=== PATIENT | female | born 1960 | race Two or more races ===

== ENCOUNTER 2020-01-23 18:00 | Inpatient (IN) | payer OTHER ==
[~2020-01-23] VITALS: Ht 154.9 cm; Wt 85.0 kg
[2020-01-23] MEDS ORDERED: SODIUM CHLORIDE 0.9% 1,000 ML IV ONE (19:00)
[2020-01-23] MEDS ORDERED: DOXYCYCLINE 100MG/250ML 250 ML IV ONE (20:45)
[2020-01-23 21:42] LABS: Basophils # (auto) 0 10 ^3/uL (0-0.2); Basophils % (auto) 0.4 % (0.0-2.0); Eosinophils # (auto) 0.1 10 ^3/uL (0-0.8); Eosinophils % (auto) 0.5 % (0.0-7.0); Hemoglobin 13.1 g/dL (12.2-16.2); Lymphocytes # (auto) 0.9 10 ^3/uL (0.4-5.4); Lymphocytes % (auto) 7.7 % (10.0-50.0); Mean Corpuscular Hemoglobin 29.7 pg (28.0-32.0); Mean Corpuscular Hgb Conc. 32.6 g/dL (32.0-36.0); Monocytes # (auto) 0.8 10 ^3/uL (0-1.3); Monocytes % (auto) 7.2 % (0.0-12.0); Neutrophils # (auto) 9.7 10 ^3/uL (1.6-8.6); Neutrophils % (auto) 84.2 % (37.0-80.0); Nucleated Red Blood Cells % 0.1 %; Platelet Count (auto) 262 10^3/uL (140-450); Red Cell Distribution Width 14.1 % (11.8-14.3); White Blood Cell 11.5 10^3/uL (4.4-10.8)
[2020-01-23] MEDS ORDERED: methylPREDNISolone SOD SUCC 125 MG/2 ML VL IV ONE (21:45)
[2020-01-23 21:54] LABS: INR 1.02 (0.9-1.15); Partial Thromboplastin Time 27.4 sec (23.64-32.05)
[2020-01-23 21:56] LABS: Alanine Aminotransferase 51 U/L (13-56); Albumin 2.5 g/dL (3.4-5.0); Anion Gap 8 (5-15); Aspartate Aminotransferase 58 U/L (15-37); BUN/Creatinine Ratio 10.9; Blood Urea Nitrogen 6 mg/dL (7-18); Calcium 8.4 mg/dL (8.5-10.1); Carbon Dioxide 30 mmol/L (21-32); Chloride 98 mmol/L (98-107); GFR African American 145 mL/min; GFR Non-African American 120 mL/min; Glucose 180 mg/dL (74-106); Magnesium 2.3 mg/dL (1.6-2.6); Potassium 3.4 mmol/L (3.5-5.1); Sodium 136 mmol/L (136-145)
[2020-01-23 22:01] LABS: Alkaline Phosphatase 75 U/L (45-117); Bilirubin, Total 0.5 mg/dL (0.2-1.0); Total Protein 7.3 g/dL (6.4-8.2)
[2020-01-23 22:21] LABS: Urine Bacteria FEW /hpf (None Seen); Urine Blood Negative /uL (Negative); Urine Mucus FEW (None Seen); Urine Specific Gravity 1.011 (1.001-1.035); Urine WBC 8 /hpf (0 - 5)
[2020-01-24] MEDS ORDERED: SODIUM CHLORIDE 0.9% 1,000 ML IV SCH (02:54)
[2020-01-24] MEDS ORDERED: ACETAMINOPHEN 500 MG TAB PO PRN (03:00)
[2020-01-24] MEDS ORDERED: DOCUSATE SOD 100 MG CAP PO PRN (03:00)
[2020-01-24] MEDS ORDERED: ONDANSETRON HCL 4 MG/2 ML VIAL IV PRN (03:00)
[2020-01-24] MEDS ORDERED: IPRATROPIUM BROM 0.5 MG/2.5ML INH SOL NEB PRN (03:00)
[2020-01-24] MEDS: ALBUTEROL SULF HFA 90MCG INH 200DOSE IN SCH ×4 (06:00→22:47)
[2020-01-24] MEDS: CHOLECALCIFEROL (VITD3) 1,000UNIT=25mCg TAB PO SCH (07:57)
[2020-01-24] MEDS: DOXYCYCLINE 100 MG TAB/CAP PO SCH ×2 (07:57→22:35)
[2020-01-24] MEDS: cefTRIAXone 1GM/50ML D5W 50 ML IV SCH (07:57)
[2020-01-24] MEDS: ASCORBIC ACID 1,000 MG TAB PO SCH (07:57)
[2020-01-24] MEDS: ZINC SULFATE 220mg CAP or TAB PO SCH (07:57)
[2020-01-24] MEDS: LISINOPRIL 20 MG TAB PO SCH (07:57)
[2020-01-24 08:20] VITALS: BP 114/71
[2020-01-24] MEDS ORDERED: methylPREDNISolone SOD SUCC 125 MG/2 ML VL IV SCH (10:00)
[2020-01-24] MEDS ORDERED: ENOXAPARIN SOD 40 MG/0.4 ML SYRINGE SC SCH (10:00)
[2020-01-24 10:02] VITALS: BP 162/74
[2020-01-24] MEDS ORDERED: POTASSIUM CHL 20 Meq TABLET PO ONE (11:15)
[2020-01-24] MEDS ORDERED: FUROSEMIDE 40 MG/4 ML VIAL IV ONE (11:15)
[2020-01-24 11:56] LABS: Lactate Dehydrogenase 791 U/L (84-246)
[2020-01-24 12:43] LABS: CRP High Sensitivity > 19 mg/dL (< 0.3)
[2020-01-24 14:39] VITALS: BP 147/79
[2020-01-24 16:41] VITALS: BP 141/69
[2020-01-24] MEDS ORDERED: REMDESIVIR 200 MG in NS 210ml LOADING DOSE ADULT IV ONE (18:00)
[2020-01-24] MEDS: ACETAMINOPHEN 650 mg PER 20 mL UD PO SCH (20:25)
[2020-01-24] MEDS: diphenhdrAMINE HCL 50 MG/1 ML VL IV SCH (20:25)
[2020-01-24] MEDS: methylPREDNISolone SOD SUCC 40 MG/ML VL IV SCH (20:25)
[2020-01-24] MEDS: HYDROcodone-ACET 5/325MG TAB PO PRN (20:26)
[2020-01-24] MEDS: TOCILIZUMAB 400 MG in SODIUM CHL 0.9% 80 ML IV SCH (20:41)
[2020-01-24] MEDS: BUDESONIDE (INHALATION) 180 MCG IH IN SCH ×2 (22:34→22:47)
[2020-01-24] MEDS: ENOXAPARIN SOD 100 MG/1 ML SYRINGE SC SCH (22:35)
[2020-01-24 22:47] VITALS: BP 145/84
[2020-01-25 02:43] VITALS: BP 151/81
[2020-01-25 07:01] VITALS: BP 151/88
[2020-01-25] MEDS: ALBUTEROL SULF HFA 90MCG INH 200DOSE IN SCH ×3 (07:01→22:00)
[2020-01-25] MEDS: methylPREDNISolone SOD SUCC 40 MG/ML VL IV SCH (08:05)
[2020-01-25] MEDS: ACETAMINOPHEN 650 mg PER 20 mL UD PO SCH (08:05)
[2020-01-25] MEDS: diphenhdrAMINE HCL 50 MG/1 ML VL IV SCH (08:05)
[2020-01-25 08:25] LABS: Basophils # (auto) 0.1 10 ^3/uL (0-0.2); Basophils % (auto) 0.3 % (0.0-2.0); Eosinophils # (auto) 0 10 ^3/uL (0-0.8); Hematocrit 40.9 % (36.0-46.0); Hemoglobin 13.3 g/dL (12.2-16.2); Lymphocytes # (auto) 1.1 10 ^3/uL (0.4-5.4); Lymphocytes % (auto) 4.6 % (10.0-50.0); Mean Corpuscular Hemoglobin 29.9 pg (28.0-32.0); Mean Corpuscular Hgb Conc. 32.4 g/dL (32.0-36.0); Mean Corpuscular Volume 92.1 fL (80.0-100.0); Monocytes # (auto) 1.3 10 ^3/uL (0-1.3); Monocytes % (auto) 5.5 % (0.0-12.0); Neutrophils % (auto) 89.6 % (37.0-80.0); Platelet Count (auto) 300 10^3/uL (140-450); Red Blood Cells 4.44 10^6/uL (4.0-5.20); Red Cell Distribution Width 14.1 % (11.8-14.3); White Blood Cell 23.5 10^3/uL (4.4-10.8)
[2020-01-25 08:41] LABS: Albumin 2.5 g/dL (3.4-5.0); BUN/Creatinine Ratio 26.7; Calcium 8.9 mg/dL (8.5-10.1); Potassium 3.2 mmol/L (3.5-5.1)
[2020-01-25 08:44] LABS: Bilirubin, Total 0.4 mg/dL (0.2-1.0); Total Protein 7.4 g/dL (6.4-8.2)
[2020-01-25] MEDS: TOCILIZUMAB 400 MG in SODIUM CHL 0.9% 80 ML IV SCH (09:03)
[2020-01-25] MEDS: CHOLECALCIFEROL (VITD3) 1,000UNIT=25mCg TAB PO SCH (10:27)
[2020-01-25] MEDS: LISINOPRIL 20 MG TAB PO SCH (10:28)
[2020-01-25] MEDS: DexAMETHasone SOD PHOS 4 MG/1ML SDV INJ IV SCH (10:28)
[2020-01-25] MEDS: FUROSEMIDE 40 MG/4 ML VIAL IV SCH (10:28)
[2020-01-25] MEDS: DOXYCYCLINE 100 MG TAB/CAP PO SCH ×2 (10:30→22:36)
[2020-01-25] MEDS: ASCORBIC ACID 1,000 MG TAB PO SCH (10:30)
[2020-01-25] MEDS: ENOXAPARIN SOD 100 MG/1 ML SYRINGE SC SCH ×2 (10:30→22:36)
[2020-01-25] MEDS: POTASSIUM CHL 20 Meq TABLET PO SCH (10:30)
[2020-01-25] MEDS: cefTRIAXone 1GM/50ML D5W 50 ML IV SCH ×2 (10:31→22:36)
[2020-01-25] MEDS: ZINC SULFATE 220mg CAP or TAB PO SCH (10:34)
[2020-01-25] MEDS: BUDESONIDE (INHALATION) 180 MCG IH IN SCH ×2 (11:49→22:00)
[2020-01-25 13:48] VITALS: BP 150/90
[2020-01-25] MEDS ORDERED: POTASSIUM EFFERVESENT TAB 25 MEQ PO ONE (16:15)
[2020-01-25] MEDS ORDERED: amLODIPine BESYLATE 5 MG TAB PO ONE (16:15)
[2020-01-25] MEDS ORDERED: DEXTROSE (50%) 50ML SYRG IV PRN (16:30)
[2020-01-25] MEDS: REMDESIVIR 100mg in NS 230ml DAILYx4DAYS (NO VENT) IV SCH (17:53)
[2020-01-25 18:50] VITALS: BP 151/85
[2020-01-25] MEDS: ACCU-CHEK COMFORT CURVE STRIP VI SCH ×2 (18:56→23:21)
[2020-01-25] MEDS: InsuLIN REG 1unit/0.01ml Soln (100units/ml) SC SCH ×2 (18:57→23:28)
[2020-01-25 22:00] VITALS: BP 137/86
[2020-01-26] VITALS (7 sets, daily range): BP systolic 126–151; BP diastolic 69–88
[2020-01-26] MEDS ORDERED: InsuLIN REG 1unit/0.01ml Soln (100units/ml) IV ONE (03:15)
[2020-01-26] MEDS: InsuLIN REG 1unit/0.01ml Soln (100units/ml) SC SCH ×3 (06:28→18:25)
[2020-01-26] MEDS: ACCU-CHEK COMFORT CURVE STRIP VI SCH ×3 (06:28→18:16)
--- NOTE | 2020-01-26 06:58 | NUR ---
MDI ALBUTEROL 90 MCG AND PULMICORT 360 MCG GIVEN.
[2020-01-26 10:53] LABS: Hematocrit 40.9 % (36.0-46.0); Hemoglobin 13.4 g/dL (12.2-16.2); Mean Corpuscular Hgb Conc. 32.8 g/dL (32.0-36.0); Mean Corpuscular Volume 91.4 fL (80.0-100.0); Platelet Count (auto) 316 10^3/uL (140-450); Red Blood Cells 4.48 10^6/uL (4.0-5.20); White Blood Cell 16.1 10^3/uL (4.4-10.8)
[2020-01-26 10:57] LABS: Basophils % (manual) 0 (0.0-2.0); Blast Cells 0; Eosinophils % (manual) 0 (0-7); Metamyelocytes % 0; Myelocytes % 0; Promyelocytes % 0; Reactive Lymphocytes 0
[2020-01-26 11:11] LABS: Albumin 2.5 g/dL (3.4-5.0); Calcium 8.7 mg/dL (8.5-10.1); Potassium 3.2 mmol/L (3.5-5.1)
[2020-01-26 11:14] LABS: BUN/Creatinine Ratio 25.8; Bilirubin, Total 0.4 mg/dL (0.2-1.0); Total Protein 6.8 g/dL (6.4-8.2)
[2020-01-26] MEDS: BUDESONIDE (INHALATION) 180 MCG IH IN SCH ×2 (11:18→23:21)
[2020-01-26] MEDS: ALBUTEROL SULF HFA 90MCG INH 200DOSE IN SCH ×3 (11:19→23:21)
[2020-01-26 11:35] LABS: Band Neutrophils % (manual) 2; Lymphocytes % (manual) 4 (10.0-50.0); Monocytes % (manual) 1 (0-12)
[2020-01-26] MEDS ORDERED: POTASSIUM CHL 20 Meq TABLET PO ONE (12:00)
[2020-01-26] MEDS: DexAMETHasone SOD PHOS 4 MG/1ML SDV INJ IV SCH (12:19)
[2020-01-26] MEDS: CHOLECALCIFEROL (VITD3) 1,000UNIT=25mCg TAB PO SCH (12:20)
[2020-01-26] MEDS: ASCORBIC ACID 1,000 MG TAB PO SCH (12:20)
[2020-01-26] MEDS: DOXYCYCLINE 100 MG TAB/CAP PO SCH ×2 (12:20→22:25)
[2020-01-26] MEDS: cefTRIAXone 1GM/50ML D5W 50 ML IV SCH ×2 (12:20→22:24)
[2020-01-26] MEDS: ENOXAPARIN SOD 100 MG/1 ML SYRINGE SC SCH ×2 (12:20→22:25)
[2020-01-26] MEDS: ZINC SULFATE 220mg CAP or TAB PO SCH (12:20)
[2020-01-26] MEDS: POTASSIUM CHL 20 Meq TABLET PO SCH (12:20)
[2020-01-26] MEDS: amLODIPine BESYLATE 5 MG TAB PO SCH (12:21)
[2020-01-26] MEDS: FUROSEMIDE 40 MG/4 ML VIAL IV SCH (12:21)
[2020-01-26] MEDS: LISINOPRIL 20 MG TAB PO SCH (12:21)
[2020-01-26] MEDS: REMDESIVIR 100mg in NS 230ml DAILYx4DAYS (NO VENT) IV SCH (18:06)
--- NOTE | 2020-01-26 18:11 | NUR ---
Respiratory note: PT TAKEN OFF BIPAP AT THIS TIME AND PLACED ON NRB: HR 96, RR 24, SPO2 95%. PT SHOWS NO S/S OF SOB OR RESPIRATORY DISTRESS. WILL CONTINUE TO MONITOR.
[2020-01-27] VITALS (12 sets, daily range): BP systolic 103–144; BP diastolic 47–93
[2020-01-27] MEDS: InsuLIN REG 1unit/0.01ml Soln (100units/ml) SC SCH ×4 (00:21→18:00)
[2020-01-27] MEDS: ACCU-CHEK COMFORT CURVE STRIP VI SCH ×4 (00:21→18:28)
[2020-01-27] MEDS: FUROSEMIDE 40 MG/4 ML VIAL IV SCH (08:24)
[2020-01-27] MEDS: POTASSIUM CHL 20 Meq TABLET PO SCH (08:25)
[2020-01-27] MEDS: amLODIPine BESYLATE 5 MG TAB PO SCH (08:25)
[2020-01-27] MEDS: ASCORBIC ACID 1,000 MG TAB PO SCH (08:25)
[2020-01-27] MEDS: CHOLECALCIFEROL (VITD3) 1,000UNIT=25mCg TAB PO SCH (08:25)
[2020-01-27] MEDS: ZINC SULFATE 220mg CAP or TAB PO SCH (08:25)
[2020-01-27] MEDS: cefTRIAXone 1GM/50ML D5W 50 ML IV SCH ×2 (08:25→21:23)
[2020-01-27] MEDS: ENOXAPARIN SOD 100 MG/1 ML SYRINGE SC SCH ×2 (08:25→21:24)
[2020-01-27] MEDS: DOXYCYCLINE 100 MG TAB/CAP PO SCH ×2 (08:25→21:24)
[2020-01-27] MEDS: LISINOPRIL 20 MG TAB PO SCH (08:25)
[2020-01-27 08:39] LABS: Hematocrit 42.7 % (36.0-46.0); Hemoglobin 14.2 g/dL (12.2-16.2); Mean Corpuscular Hemoglobin 30.1 pg (28.0-32.0); Mean Corpuscular Hgb Conc. 33.2 g/dL (32.0-36.0); Mean Corpuscular Volume 90.6 fL (80.0-100.0); Platelet Count (auto) 321 10^3/uL (140-450); Red Blood Cells 4.71 10^6/uL (4.0-5.20); Red Cell Distribution Width 13.7 % (11.8-14.3); White Blood Cell 12.5 10^3/uL (4.4-10.8)
[2020-01-27 08:42] LABS: Band Neutrophils % (manual) 0; Basophils % (manual) 0 (0.0-2.0); Blast Cells 0; Myelocytes % 0; Promyelocytes % 0; Reactive Lymphocytes 0
--- NOTE | 2020-01-27 09:00 | NUR ---
Respiratory note: PT TAKEN OFF BIPAP BY RN AND PLACED ON 15LPM OXYMIZER. NO RESPIRATORY DISTRESS NOTED. WILL CONTINUE TO MONITOR. SPO2 89% HR 99 RR 24.
[2020-01-27 09:12] LABS: Calcium 8.4 mg/dL (8.5-10.1); Potassium 3.9 mmol/L (3.5-5.1)
[2020-01-27 09:14] LABS: BUN/Creatinine Ratio 29.4
[2020-01-27] MEDS ORDERED: LORazepam 2MG/ML-1ML VIAL ONE (09:14)
[2020-01-27] MEDS ORDERED: LORazepam 2MG/ML-1ML VIAL IV ONE (09:15)
[2020-01-27] MEDS: DexAMETHasone SOD PHOS 10MG/1ML VIAL INJ IV SCH (09:25)
[2020-01-27 09:34] LABS: Eosinophils % (manual) 1 (0-7); Lymphocytes % (manual) 9 (10.0-50.0); Metamyelocytes % 1; Monocytes % (manual) 3 (0-12)
[2020-01-27] MEDS: ALBUTEROL SULF HFA 90MCG INH 200DOSE IN SCH ×3 (09:51→21:25)
[2020-01-27] MEDS: BUDESONIDE (INHALATION) 180 MCG IH IN SCH ×2 (09:53→21:25)
[2020-01-27] MEDS ORDERED: ALPRAZolam 0.25 MG TAB PO PRN (14:45)
[2020-01-27] MEDS: REMDESIVIR 100mg in NS 230ml DAILYx4DAYS (NO VENT) IV SCH (18:28)
--- NOTE | 2020-01-27 19:48 | NUR ---
SPOKE WITH DR.SIVA JAVIER REGARDING PATIENT PULLING OFF CPAP AND ATTEMPTING TO REMOVE LINES. NEW ORDER RECEIVED FOR MEDSURG RESTRAINTS FOR PATIENT SAFETY. WILL CARRY OUT ORDER Addendum: 01/27/20 at 2036 by Lisy Louise RN WRONG PATIENT, DISREGARD NOTE
--- NOTE | 2020-01-27 21:30 | NUR ---
Admit to [facility]admitted to [facility] via gurney on passport application examiner, and portable 02. Patient transfered to bed, connected to unit monitoring and oxygen, and weighed by bedscale. Patient oriented to Lisy meraz RN, unit, room, bed, and unit policies regarding patient care and visiting hours. All questions and concerns addressed, patient verbalized understanding. PATIENT IS A/OX4, PRIMARILY POLISH SPEAKING, CONNECTED TO CONTINUOUS BEDSIDE MONITORS. PATIENT PLACED ON HIGH FLOW NASAL 55L, FIO2 100% BY RT. HOWARD DRAINING TO GRAVITY. PATIENT ABLE TO TURN AND REPOSITIONS SELF IN BED
--- NOTE | 2020-01-27 22:35 | NUR ---
NON COMPLIANT PATIENT HAS REMOVED HIGH FLOW CANNULA MULTIPLE TIMES. PATIENT RE-EDUCATED NOT TO REMOVE CANNULA. PATIENT EDUCATED THAT HER OXYGEN IS LOW WITHOUT THE OXYGEN BEING ADMINISTERED, PATIENT VERBALIZED UNDERSTANDING.
--- NOTE | 2020-01-27 22:50 | NUR ---
RT AT BEDSIDE PLACING PATIENT ON BI PAP MASK
--- NOTE | 2020-01-27 23:40 | NUR ---
NONCOMPLIANT PATIENT PULLED OFF BIPAP MASK. BY THE TIME THIS RN WAS ABLE TO DON PROPPER PPE, SPO2 SATURATION WAS AT 55%. PATIENT EXTENSIVELY EDUCATED NOT TO REMOVE BIPAP MASK. PATIENT NODDED HEAD IN AGREEMENT.
[2020-01-28] VITALS (13 sets, daily range): BP systolic 104–128; BP diastolic 47–80
--- NOTE | 2020-01-28 00:10 | NUR ---
NONCOMPLIANT PATIENT COMPLETELY REMOVED BIPAP MASK, SPO2 AT 65% AT THE LOWEST. AFTER THIS RN DONNED PPE, BIPAP PLACED BACK ON PATIENT. PATIENT EDUCATED NOT TO REMOVE MASK DUE TO LOW OXYGEN WITHOUT IT. PATIENT STATES, "SORRY". WILL CONTINUE TO MONITOR
--- NOTE | 2020-01-28 00:10 | NUR ---
CALLED PATIENTS FARHAT BASILIO [phone] TO UPDATE ON PATIENT NONCOMPLIANCE. NO ANSWER. WILL ATTEMPT AGAIN LATER.
--- NOTE | 2020-01-28 00:24 | NUR ---
NON COMPLIANT PATIENT PULLED OFF BIPAP MASK AND DESATURATED DOWN TO 60'S%. THIS RN DONNED PROPER PPE AND ENTERED ROOM. PATIENT FOUND WITH BIPAP MASK OFF AND PULLING PULSE OX. PATIENT EDUCATED NOT TO PULL OFF MASK AND TO KEEP PULSE OX ON. PATIENT STATES, "I DON'T WANT IT". EDUCATED PATIENT THAT HER OXYGEN IS LOW WITHOUT THE BIPAP MASK AND IT IS CRUCIAL TO LEAVE IT ON. PATIENT NODDED IN AGREEMENT.
--- NOTE | 2020-01-28 00:47 | NUR ---
NONCOMPLIANT PATIENT REMOVED BIPAP MASK COMPLETELY. SPO2 DROPPED TO 58% QUICKLY. CCT ATA DONNED PROPER PPE AND ENTERED ROOM TO PLACED BIPAP BACK ON PATIENT. SPO2 GRADUALLY INCREASED TO 91%. PATIENT KEEPS TRYING TO REMOVE BIPAP MASK DESPITE EDUCATION. WILL NOTIFY
[2020-01-28] MEDS: InsuLIN REG 1unit/0.01ml Soln (100units/ml) SC SCH ×4 (00:51→18:34)
--- NOTE | 2020-01-28 00:55 | NUR ---
HOSPITALIST PAGED REGARDING: PATIENT KEEPS PULLING BIPAP MASK OFF. WILL WAIT FOR CALL BACK.
--- NOTE | 2020-01-28 01:20 | NUR ---
RECEIVED CALL BACK SPOKE WITH HOSPITALIST ALICIA. NEW TELEPHONE ORDER RECEIVED FOR MEDSURG RESTRAINTS DUE TO PATIENT BEING A DANGER TO SELF BY PULLING OFF BIPAP. WILL CARRY OUT ORDER.
--- NOTE | 2020-01-28 01:40 | NUR ---
RECEIVED CALL FROM PATIENTS DAUGHTER CHETNA. CORRECT PASSWORD PROVIDED. UPDATE GIVEN ON PATIENT STATUS AND RESTRAINTS ORDER. DAUGHTER AWARE AND IN AGREEMENT. PATIENT STATES, "YES, LET'S DO WHATEVER WE HAVE TO DO TO KEEP HER OXYGEN UP".
--- NOTE | 2020-01-28 03:10 | NUR ---
NONCOMPLIANT PATIENT TOOK OFF WRIST RESTRAINTS AND PULLED OFF BIPAP MASK. SPO2 DROPPED TO 70'S. AFTER PPE DONNED, THIS RN ENTERED THE ROOM. EDUCATED PATIENT ON THE IMPORTANCE OF KEEPING ON BIPAP MASK. PATIENT STATES, "I DON'T WANT IT ON". EDUCATED PATIENT THAT BIPAP MASK IS WHAT IS HELPING HER OXYGENATION. PATIENT REORIENTED AND RE EDUCATED, PATIENT STILL ATTEMPTING TO REMOVE BIPAP AND TRYING TO REMOVE IV LINE. SOFT WRIST RESTRAINTS REAPPLIED. WILL CONTINUE TO MONITOR.
[2020-01-28 03:41] LABS: Basophils # (auto) 0 10 ^3/uL (0-0.2); Basophils % (auto) 0.2 % (0.0-2.0); Eosinophils # (auto) 0.1 10 ^3/uL (0-0.8); Eosinophils % (auto) 0.3 % (0.0-7.0); Hematocrit 42.6 % (36.0-46.0); Lymphocytes # (auto) 1.4 10 ^3/uL (0.4-5.4); Lymphocytes % (auto) 8.1 % (10.0-50.0); Mean Corpuscular Hemoglobin 29.9 pg (28.0-32.0); Mean Corpuscular Volume 90.7 fL (80.0-100.0); Monocytes # (auto) 0.6 10 ^3/uL (0-1.3); Monocytes % (auto) 3.4 % (0.0-12.0); Neutrophils # (auto) 15.4 10 ^3/uL (1.6-8.6); Nucleated Red Blood Cells % 0.1 %; Platelet Count (auto) 381 10^3/uL (140-450); Red Blood Cells 4.69 10^6/uL (4.0-5.20); Red Cell Distribution Width 13.9 % (11.8-14.3); White Blood Cell 17.5 10^3/uL (4.4-10.8)
[2020-01-28 03:58] LABS: Albumin 2.8 g/dL (3.4-5.0); Calcium 8.4 mg/dL (8.5-10.1); INR 1.19 (0.9-1.15); Partial Thromboplastin Time 28.5 sec (23.64-32.05); Potassium 3.4 mmol/L (3.5-5.1)
[2020-01-28 04:08] LABS: BUN/Creatinine Ratio 22.4; Bilirubin, Total 0.3 mg/dL (0.2-1.0); CRP High Sensitivity 2.3 mg/dL (< 0.3); Total Protein 6.8 g/dL (6.4-8.2)
[2020-01-28] MEDS ORDERED: ATEN-60 PO (05:37)
--- NOTE | 2020-01-28 06:10 | NUR ---
BM/HYGIENE PATIENT HAD LARGE LOOSE BROWN BM. PATIENT PROVIDED WITH HYGIENE CARE AND LINEN CHANGE. WARM SOAPY WASH CLOTHS USED, PATIENT TOLERATED WELL.
[2020-01-28] MEDS: ACCU-CHEK COMFORT CURVE STRIP VI SCH ×4 (06:47→18:34)
--- NOTE | 2020-01-28 07:39 | NUR ---
CLOSING PATIENT REMAINS ON BIPAP AND CONTINUOUS BEDSIDE MONITORS. PATIENT STILL ON RESTRAINTS FOR PATIENT SAFETY. PATIENT ASSESSED THROUGHOUT SHIFT, PROVIDED WITH ROM, ORAL CARE/NUTRITION, CIRCULATORY ASSESSMENTS, POSITION CHANGES, QUICK RELEASES, AND HYGIENE. CARE ENDORSED TO AM SHIFT VICTOR M LASSITER.
--- NOTE | 2020-01-28 08:00 | NUR ---
REMOVED SOFT RESTRAINTS PT ALERT AND ORIENTED. NO DISTRESS NOTED. AWARE OF SITUATION AND VERBALIZED UNDERSTANDING. PULSES AND SKIN INTACT.
[2020-01-28] MEDS: DexAMETHasone SOD PHOS 10MG/1ML VIAL INJ IV SCH (08:47)
[2020-01-28] MEDS: POTASSIUM CHL 20 Meq TABLET PO SCH (08:48)
[2020-01-28] MEDS: ZINC SULFATE 220mg CAP or TAB PO SCH (08:48)
[2020-01-28] MEDS: FUROSEMIDE 40 MG/4 ML VIAL IV SCH ×2 (08:48→10:00)
[2020-01-28] MEDS: cefTRIAXone 1GM/50ML D5W 50 ML IV SCH ×2 (08:48→21:26)
[2020-01-28] MEDS: DOXYCYCLINE 100 MG TAB/CAP PO SCH ×2 (08:49→21:26)
[2020-01-28] MEDS: ASCORBIC ACID 1,000 MG TAB PO SCH (08:49)
[2020-01-28] MEDS: amLODIPine BESYLATE 5 MG TAB PO SCH ×2 (08:49→10:00)
[2020-01-28] MEDS: CHOLECALCIFEROL (VITD3) 1,000UNIT=25mCg TAB PO SCH (08:50)
[2020-01-28] MEDS: LISINOPRIL 20 MG TAB PO SCH (08:50)
[2020-01-28] MEDS: ENOXAPARIN SOD 100 MG/1 ML SYRINGE SC SCH ×2 (08:51→21:26)
[2020-01-28] MEDS ORDERED: POTASSIUM CHL 20 Meq TABLET PO ONE (10:00)
[2020-01-28] MEDS: ALBUTEROL SULF HFA 90MCG INH 200DOSE IN SCH ×3 (10:16→21:57)
[2020-01-28] MEDS: BUDESONIDE (INHALATION) 180 MCG IH IN SCH ×2 (10:16→21:57)
--- NOTE | 2020-01-28 12:28 | NUR ---
Nutrition Assessment Notes please see attached link for complete assessment [employer] needs ABW 70 [id number] kcals (20-23 kcal/kgBW), Est Protein needs: 70-77 gms/day (1.0-1.1 gm/kgBW). Will continue to monitor and reassess prn. Addendum: 01/28/20 at [address] Amended: Links added.
[2020-01-28] MEDS: Glucerna Carbsteady SHAKE Vanilla 8oz PO SCH ×2 (12:46→17:31)
--- NOTE | 2020-01-28 16:15 | NUR ---
assessment Patient is a 59 year old female who has new onset confusion per her daughter Yolanda. Per Yolanda prior to admission patient lived home with family and was independent. Patient still works. Patients PCP is at the [facility]. Patient is Covid positive. I informed Yolanda patients post discharge needs to be determined once down graded and prior to discharge. I will continue to monitor and follow up as appropriate. Yolanda verbalized understanding. Addendum: 01/28/20 at 1618 by Mary MYLES Amended: Links added.
[2020-01-28] MEDS: REMDESIVIR 100mg in NS 230ml DAILYx4DAYS (NO VENT) IV SCH (17:31)
--- NOTE | 2020-01-28 19:03 | NUR ---
CARE ENDORSED PT WATCHING TV AND EATING SNACK. NO DISTRESS NOTED. PT ALERT AND ORIENTED RESTING IN BED. CALL LIGHT WITHIN REACH.
--- NOTE | 2020-01-28 19:17 | NUR ---
PT IS ON HIGH FLOW NC Addendum: 01/28/20 at 1918 by ADI GRANT RT Amended: Links added.
--- NOTE | 2020-01-28 19:40 | NUR ---
OPENING NOTE REPORT RECEIVED FROM HANNA RN. THIS IS A POSITIVE COVID PATIENT ON NOVEL RESPIRATORY ISOLATION. PATIENT IS A/OX4, CONNECTED TO CONTINUOUS BEDSIDE MONITORS AND ABLE TO VERBALIZE ALL NEEDS. PATIENT IS CURRENTLY ON HIGH FLOW NASAL CANNULA 45L, FIO2 90%, TOLERATING WELL WITH SPO2 BETWEEN 91-94%. PATIENT IS FINISHING UP HER DINNER TRAY AT THIS TIME INDEPENDENTLY. WILL RETURN ONCE PATIENT IS DONE TO COMPLETE PHYSICAL ASSESSMENT. HOWARD CATHETER HANGING TO GRAVITY. POC DISCUSSED. NO COMPLAINTS OF PAIN OR DISTRESS. PATIENT EDUCATED TO CALL FOR ANY NEEDS, PATIENT VERBALIZED UNDERSTANDING. CALL LIGHT WITHIN REACH.
--- NOTE | 2020-01-28 22:30 | NUR ---
RT AT BEDSIDE PLACING PATIENT ON BIPAP PER PATIENT REQUEST
[2020-01-29] VITALS (10 sets, daily range): BP systolic 108–128; BP diastolic 55–76
[2020-01-29] MEDS: ACCU-CHEK COMFORT CURVE STRIP VI SCH ×5 (00:04→23:51)
[2020-01-29] MEDS: InsuLIN REG 1unit/0.01ml Soln (100units/ml) SC SCH ×5 (00:05→23:51)
[2020-01-29 03:24] LABS: Basophils # (auto) 0 10 ^3/uL (0-0.2); Eosinophils # (auto) 0.1 10 ^3/uL (0-0.8); Hemoglobin 13.7 g/dL (12.2-16.2); Monocytes # (auto) 0.6 10 ^3/uL (0-1.3)
[2020-01-29 03:35] LABS: Basophils % (auto) 0.2 % (0.0-2.0); Eosinophils % (auto) 0.4 % (0.0-7.0); Hematocrit 42.1 % (36.0-46.0); Lymphocytes # (auto) 1.3 10 ^3/uL (0.4-5.4); Lymphocytes % (auto) 6.2 % (10.0-50.0); Mean Corpuscular Hemoglobin 29.5 pg (28.0-32.0); Mean Corpuscular Hgb Conc. 32.4 g/dL (32.0-36.0); Monocytes % (auto) 2.7 % (0.0-12.0); Neutrophils # (auto) 18.3 10 ^3/uL (1.6-8.6); Neutrophils % (auto) 90.5 % (37.0-80.0); Nucleated Red Blood Cells % 0.1 %; Platelet Count (auto) 361 10^3/uL (140-450); Red Blood Cells 4.63 10^6/uL (4.0-5.20); Red Cell Distribution Width 14.2 % (11.8-14.3); White Blood Cell 20.3 10^3/uL (4.4-10.8)
[2020-01-29 03:48] LABS: BUN/Creatinine Ratio 28.1; Calcium 8.1 mg/dL (8.5-10.1); Potassium 3.8 mmol/L (3.5-5.1)
--- NOTE | 2020-01-29 04:56 | NUR ---
FAMILY PATIENTS DAUGHTER CHETNA CALLED FOR AN UPDATE ON PATIENT. CORRECT PASSWORD WAS PROVIDED. UPDATE GIVEN ON CURRENT STATUS, ALL QUESTIONS ANSWERED.
--- NOTE | 2020-01-29 06:00 | NUR ---
BM PATIENT HAD LARGE BM USING BEDSIDE COMMODE. PATIENT ABLE TO AMBULATE TO COMMODE AND BACK INTO BED WITHOUT DISTRESS.
--- NOTE | 2020-01-29 06:10 | NUR ---
AM CARE COMPLETE LINEN CHANGE PROVIDED TO PATIENT. NEW GOWN ALSO PROVIDED TO PATIENT. PATIENT REQUESTS TO DO HER OWN HYGIENE CARE.
[2020-01-29] MEDS: ALBUTEROL SULF HFA 90MCG INH 200DOSE IN SCH ×3 (06:13→23:10)
[2020-01-29] MEDS: BUDESONIDE (INHALATION) 180 MCG IH IN SCH ×2 (06:14→22:00)
--- NOTE | 2020-01-29 07:25 | NUR ---
CLOSING PATIENT CONNECTED TO CONTINUOUS BEDSIDE MONITORS. PATIENT NOW ON HIGH FLOW NASAL CANNULA 45L, FIO2 90% AND TOLERATING WELL WITH SPO2 94%. NO SOB OR DISTRESS. CALL LIGHT WITHIN REACH. CARE ENDORSED TO DAYSTXFT VICTOR M LASSITER.
--- NOTE | 2020-01-29 09:00 | NUR ---
PT WATCHING TV CALL LIGHT WITHIN REACH. NO DISTRESS. VSS WILL CONTINUE TO MONITOR.
[2020-01-29] MEDS: ENOXAPARIN SOD 100 MG/1 ML SYRINGE SC SCH ×2 (09:36→21:26)
[2020-01-29] MEDS: cefTRIAXone 1GM/50ML D5W 50 ML IV SCH ×2 (09:36→21:26)
[2020-01-29] MEDS: FUROSEMIDE 40 MG/4 ML VIAL IV SCH (09:39)
[2020-01-29] MEDS: ZINC SULFATE 220mg CAP or TAB PO SCH (09:40)
[2020-01-29] MEDS: DexAMETHasone SOD PHOS 10MG/1ML VIAL INJ IV SCH (09:40)
[2020-01-29] MEDS: POTASSIUM CHL 20 Meq TABLET PO SCH (09:40)
[2020-01-29] MEDS: amLODIPine BESYLATE 5 MG TAB PO SCH (09:41)
[2020-01-29] MEDS: CHOLECALCIFEROL (VITD3) 1,000UNIT=25mCg TAB PO SCH (09:41)
[2020-01-29] MEDS: ASCORBIC ACID 1,000 MG TAB PO SCH (09:41)
[2020-01-29] MEDS: Glucerna Carbsteady SHAKE Vanilla 8oz PO SCH ×3 (10:34→19:38)
--- NOTE | 2020-01-29 10:40 | NUR ---
Respiratory note: TITRATED PT'S FLOW TO 40L ON THE HFNC. CHANGED WATER YESY WITHOUT INCIDENT.
--- NOTE | 2020-01-29 13:00 | NUR ---
02 TITRATION DECREASED TO FIO2 80%, PT POX 95%.
--- NOTE | 2020-01-29 17:37 | NUR ---
BEDSIDE PT USING BEDSIDE COMMODE. CALL LIGHT WITHIN REACH,.
--- NOTE | 2020-01-29 19:46 | NUR ---
CLOSING NOTE/CARE ENDORSED NO DISTRESS NOTED. VSS . CALL LIGHT WITHIN REACH.
--- NOTE | 2020-01-29 19:50 | NUR ---
OPENING NOTE REPORT RECEIVED FROM HANNA RN. THIS IS A POSITIVE COVID PATIENT ON NOVEL RESPIRATORY ISOLATION. PATIENT IS A/OX4, CONNECTED TO CONTINUOUS BEDSIDE MONITORS AND ABLE TO VERBALIZE ALL NEEDS. PATIENT IS CURRENTLY ON HIGH FLOW NASAL CANNULA 45L, FIO2 80%, TOLERATING WELL WITH SPO2 BETWEEN 91-94%. PHYSICAL ASSESSMENT DONE-SEE INTERVENTIONS. HOWARD CATHETER HANGING TO GRAVITY. POC DISCUSSED. NO COMPLAINTS OF PAIN OR DISTRESS. PATIENT EDUCATED TO CALL FOR ANY NEEDS, PATIENT VERBALIZED UNDERSTANDING. CALL LIGHT WITHIN REACH.
--- NOTE | 2020-01-29 22:37 | NUR ---
RT AT BEDSIDE SWITCHING PATIENT OVER TO BIPAP PER PATIENT REQUEST
--- NOTE | 2020-01-29 22:40 | NUR ---
FAMILY PATIENTS DAUGHTER CHETNA CALLED. CORRECT PASSWORD WAS PROVIDED. UPDATE GIVEN, ALL QUESTIONS ANSWERED.
[2020-01-30] VITALS (7 sets, daily range): BP systolic 105–124; BP diastolic 63–84
[2020-01-30 03:57] LABS: Basophils # (auto) 0.1 10 ^3/uL (0-0.2); Basophils % (auto) 0.3 % (0.0-2.0); Eosinophils # (auto) 0.1 10 ^3/uL (0-0.8); Eosinophils % (auto) 0.4 % (0.0-7.0); Hematocrit 44.3 % (36.0-46.0); Hemoglobin 14.3 g/dL (12.2-16.2); Lymphocytes # (auto) 0.9 10 ^3/uL (0.4-5.4); Lymphocytes % (auto) 4.1 % (10.0-50.0); Mean Corpuscular Hemoglobin 29.7 pg (28.0-32.0); Mean Corpuscular Hgb Conc. 32.3 g/dL (32.0-36.0); Mean Corpuscular Volume 91.8 fL (80.0-100.0); Monocytes # (auto) 0.6 10 ^3/uL (0-1.3); Neutrophils # (auto) 19.3 10 ^3/uL (1.6-8.6); Neutrophils % (auto) 92.2 % (37.0-80.0); Nucleated Red Blood Cells % 0.1 %; Platelet Count (auto) 358 10^3/uL (140-450); Red Blood Cells 4.83 10^6/uL (4.0-5.20); Red Cell Distribution Width 14.1 % (11.8-14.3); White Blood Cell 20.9 10^3/uL (4.4-10.8)
[2020-01-30 04:08] LABS: BUN/Creatinine Ratio 25.5; Calcium 8.3 mg/dL (8.5-10.1); Potassium 4.4 mmol/L (3.5-5.1)
[2020-01-30] MEDS: BUDESONIDE (INHALATION) 180 MCG IH IN SCH ×2 (05:42→22:10)
--- NOTE | 2020-01-30 05:42 | NUR ---
Respiratory note: PT REQUESTING TO BE OFF BIPAP. AT BEDSIDE IN FULL PPE FOR COVID PRECAUTIONS. PT TAKEN OFF BIPAP AND PLACED ON HFNC. HFNC CONNECTED TO MEDICAL AIR AND O2 WALL SOURCE. RADHA HEATER IS ADEQUATE WATER LEVEL, TEMP AND PLUGGED INTO RED OUTLET. PT TOLERATING WELL. PT HAS TO GO TO BEDSIDE COMMODE. DESATS WITH EXERTION. WILL CONTINUE TO MONITOR, PT AWARE I CAN BE PAGED AT ANY TIME SHE EXPERIENCES ANY DIFFICULTY BREATHING.
--- NOTE | 2020-01-30 05:46 | NUR ---
RT AT BEDSIDE PUTTING PATIENT ON HIGH FLOW NASAL CANNULA PER PATIENT REQUEST
--- NOTE | 2020-01-30 05:51 | NUR ---
PATIENT OUT OF BED, ON BEDSIDE COMMODE
[2020-01-30] MEDS: ACCU-CHEK COMFORT CURVE STRIP VI SCH ×4 (06:23→22:45)
[2020-01-30] MEDS: ALBUTEROL SULF HFA 90MCG INH 200DOSE IN SCH ×3 (06:25→22:10)
[2020-01-30] MEDS: InsuLIN REG 1unit/0.01ml Soln (100units/ml) SC SCH ×4 (06:25→22:22)
--- NOTE | 2020-01-30 06:26 | NUR ---
AM CARE WHILE PATIENT WAS UP ON BEDSIDE COMMODE, FULL LINEN CHANGE WAS DONE BY KATHERINE ANDREA. PATIENT WASHED UP WITH WARM SOAPY WASH CLOTHS.
--- NOTE | 2020-01-30 07:44 | NUR ---
CLOSING PATIENT CONNECTED TO CONTINUOUS BEDSIDE MONITORS. PATIENT NOW ON HIGH FLOW NASAL CANNULA 50L, FIO2 80%. CARE ENDORSED TO AM SHIFT VICTOR M ROWAN.
--- NOTE | 2020-01-30 07:45 | NUR ---
OPENING SHIFT NOTE Received report from NOC RNLisy. Assumed care of patient. Received patient resting in bed, connected to bedside monitor with alarms in place. Patient is A&Ox4 and denies pain. No s/s of distress noted. Patient currently on high flow O2 at 50L 80% with O2 sats in the mid 90s. Patient with stark draining to gravity yellow urine. PIV to left forearm #22 that flushes and is patent. Bed in lowest position, rails x2 up and call light/phone within reach. Updated on plan of care. Will continue to monitor q1hr/PRN.
[2020-01-30] MEDS: Glucerna Carbsteady SHAKE Vanilla 8oz PO SCH ×3 (08:00→17:58)
--- NOTE | 2020-01-30 09:00 | NUR ---
FAMILY Patient's daughter Yolanda called. Verified password. Updated on patient status and plan of care. All questions addressed.
[2020-01-30] MEDS: amLODIPine BESYLATE 5 MG TAB PO SCH (10:19)
[2020-01-30] MEDS: ENOXAPARIN SOD 100 MG/1 ML SYRINGE SC SCH ×2 (10:19→19:51)
[2020-01-30] MEDS: POTASSIUM CHL 20 Meq TABLET PO SCH (10:19)
[2020-01-30] MEDS: DexAMETHasone SOD PHOS 10MG/1ML VIAL INJ IV SCH (10:19)
[2020-01-30] MEDS: ZINC SULFATE 220mg CAP or TAB PO SCH (10:19)
[2020-01-30] MEDS: FUROSEMIDE 40 MG/4 ML VIAL IV SCH (10:19)
[2020-01-30] MEDS: CHOLECALCIFEROL (VITD3) 1,000UNIT=25mCg TAB PO SCH (10:19)
[2020-01-30] MEDS: ASCORBIC ACID 1,000 MG TAB PO SCH (10:19)
[2020-01-30] MEDS: cefTRIAXone 1GM/50ML D5W 50 ML IV SCH ×2 (10:19→19:51)
--- NOTE | 2020-01-30 11:00 | NUR ---
MD Dr Santos at bedside to see patient. to call daughter, Yolanda and update her.
--- NOTE | 2020-01-30 11:10 | NUR ---
O2 TITRATION ATTEMPT PER MD NICOLE. ATTEMPTED TO TITRATE TO 75% FIO2 PT DOES NOT TOLERATE O2 CHANGE. PT STEADILY DESATURATED TO LOW-MID80S, INCREASED BACK UP TO 80%FIO2, TOOK PT A COUPLE OF MINUTES TO RECOVER SATS OF 90%. COMMUNICATED ATTEMPT WITH RN AND MD NICOLE.
--- NOTE | 2020-01-30 12:50 | NUR ---
Patient sitting up in chair after eating lunch. No s/s of distress noted. Patient remains on high flow 50L 80% with O2sats 98%. RT aware that MD wants to try a titrate down O2 throughout day.
--- NOTE | 2020-01-30 13:40 | NUR ---
Respiratory note: AT BEDSIDE IN FULL PPE DUE TO COVID PRECAUTIONS, FIO2 TITRATED TO 70%. PT TOLERATING CHANGE WELL. MDI GIVEN WITH GOOD PT EFFORT AND WITHOUT ADVERSE REACTION NOTED. RN ANUM COMMUNICATED ON O2 CHANGE.
--- NOTE | 2020-01-30 16:33 | NUR ---
Respiratory note: AT BEDSIDE IN FULL PPE FOR COVID PRECAUTIONS. YESY WATER CHANGED ON RADHA HEATER WITHOUT INCIDENT. FIO2 TITRATED VIA HFNC TO 65% WHILE IN PTS ROOM, PT TOLERATED FINE. VICTOR M ROWAN MADE AWARE OF O2 CHANGE.
--- NOTE | 2020-01-30 16:45 | NUR ---
FAMILY Patient's daughter, Yolanda yanez. Password verified. Updated on patient status. All questions addressed.
--- NOTE | 2020-01-30 19:13 | NUR ---
END OF SHIFT NOTE Report given to NOC RNTate. Endorsed care of patient. Patient doing well on high flow 50L 65% with O2 sats 95%.
[2020-01-30] MEDS: HYDROcodone-ACET 5/325MG TAB PO PRN (19:51)
[2020-01-31] VITALS (13 sets, daily range): BP systolic 100–127; BP diastolic 49–77
[2020-01-31] MEDS: ACCU-CHEK COMFORT CURVE STRIP VI SCH ×3 (04:07→17:29)
[2020-01-31] MEDS: InsuLIN REG 1unit/0.01ml Soln (100units/ml) SC SCH ×3 (04:14→17:36)
[2020-01-31] MEDS: BUDESONIDE (INHALATION) 180 MCG IH IN SCH ×2 (05:58→22:00)
[2020-01-31] MEDS: ALBUTEROL SULF HFA 90MCG INH 200DOSE IN SCH ×3 (05:58→23:01)
--- NOTE | 2020-01-31 07:45 | NUR ---
OPENING SHIFT NOTE Received report from NOC RNTate. Assumed care of patient. Received patient resting in bed, connected to bedside monitor with alarms in place. Patient is A&Ox4 and denies pain. No s/s of distress noted. Patient currently on high flow O2 at 50L 60% with O2 sats in the mid 90s. Patient with stark draining to gravity yellow urine. PIV to left forearm #22 that flushes and is patent. Bed in lowest position, rails x2 up and call light/phone within reach. Updated on plan of care. Will continue to monitor q1hr/PRN.
[2020-01-31] MEDS: Glucerna Carbsteady SHAKE Vanilla 8oz PO SCH ×3 (08:00→17:29)
[2020-01-31] MEDS: amLODIPine BESYLATE 5 MG TAB PO SCH (10:00)
[2020-01-31] MEDS: POTASSIUM CHL 20 Meq TABLET PO SCH (10:22)
[2020-01-31] MEDS: FUROSEMIDE 40 MG/4 ML VIAL IV SCH (10:22)
[2020-01-31] MEDS: cefTRIAXone 1GM/50ML D5W 50 ML IV SCH ×2 (10:22→22:00)
[2020-01-31] MEDS: ZINC SULFATE 220mg CAP or TAB PO SCH (10:22)
[2020-01-31] MEDS: DexAMETHasone SOD PHOS 10MG/1ML VIAL INJ IV SCH (10:22)
[2020-01-31] MEDS: ASCORBIC ACID 1,000 MG TAB PO SCH (10:23)
[2020-01-31] MEDS: CHOLECALCIFEROL (VITD3) 1,000UNIT=25mCg TAB PO SCH (10:23)
[2020-01-31] MEDS: ENOXAPARIN SOD 100 MG/1 ML SYRINGE SC SCH ×2 (10:23→22:00)
--- NOTE | 2020-01-31 12:00 | NUR ---
MD Dr Nails to see patient.
--- NOTE | 2020-01-31 16:39 | NUR ---
FAMILY Patient's daughter, Yolanda called. Password verified. Updated on patient status. All questions addressed.
--- NOTE | 2020-01-31 18:56 | NUR ---
END OF SHIFT NOTE Report to be given to NOC RNNanda. Care of patient to be endorsed. Patient doing well on high flow 50L 60% with O2 sats 92%.
--- NOTE | 2020-01-31 19:15 | NUR ---
Opening notes Assumed care, awake and oriented with no signs of distress, on high flow 50L, FiO2 60%, SR 60's noted, stark catheter draining to clear yellow urine. Bed in lowest position with side rails up, bed alarm on. Encouraged to call if she needs something. Will continue care.
--- NOTE | 2020-01-31 20:06 | NUR ---
Received a call from dtr Mireya, updated on pt's status, all questions and concerns were addressed, verbalized understanding
--- NOTE | 2020-01-31 20:15 | NUR ---
Received a call from [place] and spoke with Radha, updates on pt's status given
[2020-02-01] VITALS (9 sets, daily range): BP systolic 107–121; BP diastolic 59–81
[2020-02-01] MEDS: ACCU-CHEK COMFORT CURVE STRIP VI SCH ×4 (00:02→17:31)
--- NOTE | 2020-02-01 00:30 | NUR ---
RT at bedside, shifted high flow to Bipap
[2020-02-01] MEDS: InsuLIN REG 1unit/0.01ml Soln (100units/ml) SC SCH ×4 (01:08→17:36)
--- NOTE | 2020-02-01 02:00 | NUR ---
Pt requested RT to switch back to high flow
--- NOTE | 2020-02-01 02:21 | NUR ---
Saturation 83-84%, Rt at bedside, increased FiO2 to 70%, SPO2 increased to 90%
[2020-02-01 03:20] LABS: Hematocrit 44.5 % (36.0-46.0); Hemoglobin 14.6 g/dL (12.2-16.2); Mean Corpuscular Hemoglobin 30.1 pg (28.0-32.0); Mean Corpuscular Hgb Conc. 32.7 g/dL (32.0-36.0); Platelet Count (auto) 312 10^3/uL (140-450); Red Blood Cells 4.84 10^6/uL (4.0-5.20); Red Cell Distribution Width 14.5 % (11.8-14.3); White Blood Cell 19.9 10^3/uL (4.4-10.8)
[2020-02-01 03:23] LABS: Basophils % (manual) 0 (0.0-2.0); Blast Cells 0; Eosinophils % (manual) 0 (0-7); Metamyelocytes % 0; Monocytes % (manual) 0 (0-12); Myelocytes % 0; Promyelocytes % 0; Reactive Lymphocytes 0
[2020-02-01 03:38] LABS: Albumin 2.8 g/dL (3.4-5.0); Calcium 8.4 mg/dL (8.5-10.1); Magnesium 2.6 mg/dL (1.6-2.6); Potassium 4.4 mmol/L (3.5-5.1)
[2020-02-01 03:44] LABS: BUN/Creatinine Ratio 28.1; Bilirubin, Total 0.3 mg/dL (0.2-1.0); CRP High Sensitivity 0.3 mg/dL (< 0.3); Total Protein 6.5 g/dL (6.4-8.2)
--- NOTE | 2020-02-01 04:15 | NUR ---
JOHN, 40 INITIALLY, RECHECKED 50, D50-50 CC GIVEN IV PUSH RECHECKED BS 66 Addendum: 02/01/20 at 0607 by Willard Camarena RN WRONG PT
[2020-02-01 05:05] LABS: Band Neutrophils % (manual) 6; Lymphocytes % (manual) 3 (10.0-50.0)
--- NOTE | 2020-02-01 05:15 | NUR ---
ELIMINATION ASSISTED TO BSC, HAD LARGE AMOUNT OF SOFT, BROWN STOOLS, SAT LOW 80'S, CLEANSED, REFUSED LINEN CHANGE. ASSISTED BACK ON BED O2 SAT SLOWLY INCREASING TO HIGH 90'S. NO DISTRESS NOTED.
--- NOTE | 2020-02-01 06:03 | NUR ---
RECEIVED A CALL FROM DTR CLARENCE, UPDATED ON PT'S STATUS, ALL QUESTIONS AND CONCERNS WERE ADDRESSED, VERBALIZED UNDERSTANDING.
[2020-02-01] MEDS: ALBUTEROL SULF HFA 90MCG INH 200DOSE IN SCH ×3 (06:15→22:22)
[2020-02-01] MEDS: BUDESONIDE (INHALATION) 180 MCG IH IN SCH ×2 (06:15→22:22)
--- NOTE | 2020-02-01 07:45 | NUR ---
OPENING SHIFT NOTE Received report from NOC RNNanda. Assumed care of patient. Received patient resting in bed, connected to bedside monitor with alarms in place. Patient is A&Ox4 and denies pain. No s/s of distress noted. Patient currently on high flow O2 at 50L 70% with O2 sats in the mid 90s. Patient with stark draining to gravity yellow urine. PIV to left forearm #22 that flushes and is patent. Bed in lowest position, rails x2 up and call light/phone within reach. Updated on plan of care. Will continue to monitor q1hr/PRN.
[2020-02-01] MEDS: Glucerna Carbsteady SHAKE Vanilla 8oz PO SCH ×3 (08:00→17:24)
--- NOTE | 2020-02-01 09:30 | NUR ---
MD Dr Nails at bedside. No orders received.
[2020-02-01] MEDS: amLODIPine BESYLATE 5 MG TAB PO SCH (10:00)
--- NOTE | 2020-02-01 11:00 | NUR ---
FAMILY Returned phone call to will Yolanda. Updated on patient status. All questions addressed.
[2020-02-01] MEDS: DexAMETHasone SOD PHOS 10MG/1ML VIAL INJ IV SCH (11:37)
[2020-02-01] MEDS: cefTRIAXone 1GM/50ML D5W 50 ML IV SCH ×2 (11:37→22:00)
[2020-02-01] MEDS: ZINC SULFATE 220mg CAP or TAB PO SCH (11:37)
[2020-02-01] MEDS: FUROSEMIDE 40 MG/4 ML VIAL IV SCH (11:37)
[2020-02-01] MEDS: POTASSIUM CHL 20 Meq TABLET PO SCH (11:38)
[2020-02-01] MEDS: ENOXAPARIN SOD 100 MG/1 ML SYRINGE SC SCH ×2 (11:38→22:00)
[2020-02-01] MEDS: CHOLECALCIFEROL (VITD3) 1,000UNIT=25mCg TAB PO SCH (11:38)
[2020-02-01] MEDS: ASCORBIC ACID 1,000 MG TAB PO SCH (11:38)
--- NOTE | 2020-02-01 14:22 | NUR ---
Nutrition Followup Notes Wt: 91.2 kg Pt is positive for COVID. Pt is with a cardiac diet, with adequate PO of 75% x 5 per RN doc. pt also receiving Glucerna 1 carton tid [employer] needs ABW 70 [id number] kcals (20-23 kcal/kgBW), Est Protein needs: 70-77 gms/day (1.0-1.1 gm/kgBW). Will continue to monitor and reassess prn. LABS: CA 8.4 L, ALB 2.8 L, GLU 156 H GI: Pt had 1 BM today per RN doc BS: 19 low risk. Refer to wound assessment report for full details. PES: Altered nutrition related lab values r.t current chronic medical condition aeb hypocalcemia, hypercapnia hypocalcemia and hyperglycemia Decreased nutrient needs r/t adiposity aeb pt`s high BMI of 38.0 kgm2 Comments 1) refer to [facility] dietitian on DC for wt management. 2) continue current plan of care
--- NOTE | 2020-02-01 18:51 | NUR ---
END OF SHIFT NOTE Report to be given to NOC RNElizbaeth. Care of patient to be endorsed. Patient doing well on high flow 50L 60% with O2 sats 95%.
--- NOTE | 2020-02-01 20:20 | NUR ---
IV Insertion 22G inserted to right hand. Pt tolerated well.
--- NOTE | 2020-02-01 22:30 | NUR ---
Elimination Pt had moderate BM in bedside commode.
[2020-02-02] VITALS (10 sets, daily range): BP systolic 105–125; BP diastolic 50–99
[2020-02-02] MEDS: InsuLIN REG 1unit/0.01ml Soln (100units/ml) SC SCH ×5 (00:26→23:11)
[2020-02-02] MEDS: ACCU-CHEK COMFORT CURVE STRIP VI SCH ×4 (00:26→17:08)
[2020-02-02] MEDS: ALBUTEROL SULF HFA 90MCG INH 200DOSE IN SCH ×3 (07:30→22:32)
[2020-02-02] MEDS: BUDESONIDE (INHALATION) 180 MCG IH IN SCH ×2 (07:30→22:22)
--- NOTE | 2020-02-02 07:45 | NUR ---
Opening Shift Note Assumed care of patient, awake and alert, watching television. No S/S of distress/SOB or pain noted, patient currently on 50 liters and 60% FIO2. Patient instructed on POC and to call for assist as needed. Commode cleaned of small size stool, will continue to monitor for changes. Fall and safety precautions in place.
[2020-02-02] MEDS: Glucerna Carbsteady SHAKE Vanilla 8oz PO SCH ×3 (08:00→18:00)
--- NOTE | 2020-02-02 09:27 | NUR ---
Family updated on pt status Family of TORRES, YURIY updated on patient's status and condition after password verification. All questions and concerns addressed, will Guerrero verbalized understanding.
--- NOTE | 2020-02-02 10:30 | NUR ---
HOSPITALIST AT BEDSIDE DR APARICIO UPDATED ON PATIENT'S STATUS, NO VERBAL ORDERS GIVEN AT THIS TIME.
[2020-02-02] MEDS: CHOLECALCIFEROL (VITD3) 1,000UNIT=25mCg TAB PO SCH (10:57)
[2020-02-02] MEDS: ENOXAPARIN SOD 100 MG/1 ML SYRINGE SC SCH ×2 (10:57→22:00)
[2020-02-02] MEDS: ASCORBIC ACID 1,000 MG TAB PO SCH (11:00)
[2020-02-02] MEDS: ZINC SULFATE 220mg CAP or TAB PO SCH (11:00)
[2020-02-02] MEDS: DexAMETHasone SOD PHOS 10MG/1ML VIAL INJ IV SCH (11:00)
[2020-02-02] MEDS: POTASSIUM CHL 20 Meq TABLET PO SCH (11:01)
[2020-02-02] MEDS: cefTRIAXone 1GM/50ML D5W 50 ML IV SCH ×2 (11:32→22:00)
[2020-02-02] MEDS: amLODIPine BESYLATE 5 MG TAB PO SCH (11:33)
[2020-02-02] MEDS: FUROSEMIDE 40 MG/4 ML VIAL IV SCH (11:33)
--- NOTE | 2020-02-02 13:15 | NUR ---
BM/COMFORT/IV DISCONTINUED/RESTARTED PATIENT ABLE TO TRANSFER SELF FROM BED TO COMMODE - IN PROCESS PATIENT DISCONTINUED IV TO LEFT HAND, CATHETER FULLY INTACT - PRESSURE DRESSING APPLIED.PATIENT ABLE TO CLEAN SELF OF LARGE SOFT BROWN STOOL. PATIENT TRANSFERRED SELF BACK TO BED AND THIS NURSE ASSISTED WITH GOWN CHANGE AND COMPLETE BEDDING CHANGE. IV insertion IV access obtained, via clean sterile technique by inserting 22 gauge catheter at left forearm after one attempt. IV secured properly. No trauma to site. Patient tolerated procedure well. FALL AND SAFETY PRECAUTIONS IN PLACE, CALL LIGHT AND ALL PERSONAL BELONGINGS WITHIN REACH. WILL CONTINUE TO MONITOR.
--- NOTE | 2020-02-02 18:00 | NUR ---
Family updated on pt status Family of YURIY TORRES updated on patient's status and condition after password verification. All questions and concerns addressed. Patient's daughter Yolanda verbalized understanding.
--- NOTE | 2020-02-02 22:30 | NUR ---
Family Received call from daughter. All questions and concerns addressed at this time.
--- NOTE | 2020-02-03 03:37 | NUR ---
IV insertion to left AC 18g. Pt tolerated well.
[2020-02-03 03:46] LABS: Mean Corpuscular Hemoglobin 30.5 pg (28.0-32.0); Mean Corpuscular Hgb Conc. 33.3 g/dL (32.0-36.0); Mean Corpuscular Volume 91.6 fL (80.0-100.0); Platelet Count (auto) 326 10^3/uL (140-450); Red Blood Cells 4.92 10^6/uL (4.0-5.20); Red Cell Distribution Width 14.6 % (11.8-14.3); White Blood Cell 17.9 10^3/uL (4.4-10.8)
[2020-02-03 04:00] VITALS: BP 116/69
[2020-02-03 04:06] LABS: Potassium 4.4 mmol/L (3.5-5.1)
[2020-02-03 04:10] LABS: Band Neutrophils % (manual) 0; Basophils % (manual) 0 (0.0-2.0); Blast Cells 0; Metamyelocytes % 0; Promyelocytes % 0; Reactive Lymphocytes 0
[2020-02-03 04:17] LABS: Albumin 3.1 g/dL (3.4-5.0); BUN/Creatinine Ratio 29.3; Bilirubin, Total 0.3 mg/dL (0.2-1.0); CRP High Sensitivity 0.1 mg/dL (< 0.3); Calcium 8.7 mg/dL (8.5-10.1); Total Protein 7.1 g/dL (6.4-8.2)
[2020-02-03] MEDS: InsuLIN REG 1unit/0.01ml Soln (100units/ml) SC SCH ×4 (05:17→23:31)
[2020-02-03] MEDS: ACCU-CHEK COMFORT CURVE STRIP VI SCH ×5 (05:17→23:31)
[2020-02-03 05:21] LABS: Eosinophils % (manual) 1 (0-7); Lymphocytes % (manual) 8 (10.0-50.0); Monocytes % (manual) 5 (0-12); Myelocytes % 2
--- NOTE | 2020-02-03 07:23 | NUR ---
Report given to day shift RN
[2020-02-03] MEDS: ALBUTEROL SULF HFA 90MCG INH 200DOSE IN SCH ×3 (07:30→22:30)
--- NOTE | 2020-02-03 07:30 | NUR ---
OPENING SHIFT NOTE REPORT RECEIVED FROM OPTICAL DISPENSER RN, PATIENT RESTING IN BED WATCHING TELEVISION. NO DISTRESS NOTED, RESPIRATIONS EVEN AND UNLABORED CURRENTLY ON 50 LITERS - 45% FIO2. FALL AND SAFETY PRECAUTIONS IN PLACE, CALL LIGHT AND ALL PERSONAL BELONGINGS WITHIN REACH. WILL CONTINUE TO MONITOR.
[2020-02-03] MEDS: BUDESONIDE (INHALATION) 180 MCG IH IN SCH ×2 (07:31→22:30)
[2020-02-03 08:00] VITALS: BP 126/86
[2020-02-03] MEDS: Glucerna Carbsteady SHAKE Vanilla 8oz PO SCH ×3 (08:00→18:00)
--- NOTE | 2020-02-03 09:45 | NUR ---
I.S. PROVIDED PATIENT EDUCATED ON USE AND NEED FOR INCENTIVE SPIROMETER. PATIENT PROVIDED RETURN DEMONSTRATION AND MEASURED 500 MLS. PATIENT INSTRUCTED TO USE THREE TIMES EVERY 15 MINUTES WHILE AWAKE AND/OR WATCHING TELEVISION. PATIENT VERBALIZED UNDERSTANDING.
[2020-02-03] MEDS: ENOXAPARIN SOD 100 MG/1 ML SYRINGE SC SCH ×2 (09:47→22:00)
[2020-02-03] MEDS: DexAMETHasone SOD PHOS 10MG/1ML VIAL INJ IV SCH (09:47)
[2020-02-03] MEDS: POTASSIUM CHL 20 Meq TABLET PO SCH (09:48)
[2020-02-03] MEDS: ZINC SULFATE 220mg CAP or TAB PO SCH (09:48)
[2020-02-03] MEDS: CHOLECALCIFEROL (VITD3) 1,000UNIT=25mCg TAB PO SCH (09:48)
[2020-02-03] MEDS: ASCORBIC ACID 1,000 MG TAB PO SCH (09:48)
[2020-02-03 09:59] VITALS: BP 121/81
[2020-02-03] MEDS: cefTRIAXone 1GM/50ML D5W 50 ML IV SCH ×2 (10:21→22:00)
[2020-02-03] MEDS: FUROSEMIDE 40 MG/4 ML VIAL IV SCH (10:21)
[2020-02-03] MEDS: amLODIPine BESYLATE 5 MG TAB PO SCH (10:22)
--- NOTE | 2020-02-03 11:30 | NUR ---
PT WAS TAKEN OFF THE HFNC, PT PLACED ON 12 L/ MIN VIA OXYMIZER. PT TOLERATING WELL. PT SITTING UP IN CHAIR. 93% O2 SATS, HR 102 BPM, BP 122/76. NO SOB OR ANY OTHER RESPIRATORY DISTRESS NOTICED. WILL CONTINUE TO MONITOR PT.
[2020-02-03 11:49] VITALS: BP 122/76
--- NOTE | 2020-02-03 12:30 | NUR ---
Family updated on pt status Family of YURIY TORRES updated on patient's status and condition after password verificatoin. All questions and concerns addressed. Patient's daughter Yolanda verbalized understanding.
--- NOTE | 2020-02-03 15:51 | NUR ---
PT REMAINS OFF HFNC AND ON 10L/MIN VIA OXYMIZER. PT TOLERATING WELL. 93-94% O2 SATS. NO SOB OR ANY OTHER RESPIRATORY DISTRESS NOTICED. WILL CONTINUE TO MONITOR PT.
[2020-02-03 16:00] VITALS: BP 135/85
--- NOTE | 2020-02-03 18:47 | NUR ---
PT ON 10L OXYMIZER, SPO2 NOTED AT 97%. FIO2 TITRATED TO 9L VIA OXYMIZER, SPO2 STILL NOTED AT 97%, RN DARRIUS AWARE. PT IN NO RESPIRATORY DISTRESS. IS IN HAND, PT STATES SHE IS ABLE TO PERFORM AND FEELING BETTER. BS DIMINISHED/CLEAR. NO SIGNS OF RESPIRATORY DISTRESS. HFNC REMAINS AT BEDSIDE ON STANDBY. WILL CONTINUE TO MONITOR AND TITRATE FIO2 TOLERATED.
[2020-02-03 20:00] VITALS: BP 115/80
--- NOTE | 2020-02-03 20:30 | NUR ---
Family Daughter called asking for update. All questions and concerns addressed at this time.
[2020-02-03] MEDS: INSULIN 70/30 1unit/0.01ml Susp (100units/ml) SC SCH (22:00)
--- NOTE | 2020-02-03 22:30 | NUR ---
Elimination Pt had moderate amt of bm in bedside commode.
[2020-02-04] VITALS (7 sets, daily range): BP systolic 105–136; BP diastolic 70–85
--- NOTE | 2020-02-04 02:47 | NUR ---
Respiratory note: AT BEDSIDE IN FULL PPE, ATTEMPTED TO TITRATE FIO2 TO 8L VIA OXYMIZER PT SPO2 NOTED AT 87% AFTER TITRATION. PT PLACED BACK ON 9L OXYMIZER, SPO2 NOTED AT 94%. PT TO REMAIN ON 9L AT THIS TIME. PT IN NO RESPIRATORY DISTRESS, WILL CONTINUE TO MONITOR.
[2020-02-04 04:00] LABS: BUN/Creatinine Ratio 32.7; Calcium 8.7 mg/dL (8.5-10.1); Potassium 4.3 mmol/L (3.5-5.1)
[2020-02-04] MEDS: ALBUTEROL SULF HFA 90MCG INH 200DOSE IN SCH ×3 (06:00→22:59)
[2020-02-04] MEDS: InsuLIN REG 1unit/0.01ml Soln (100units/ml) SC SCH ×4 (06:11→23:29)
[2020-02-04] MEDS: ACCU-CHEK COMFORT CURVE STRIP VI SCH ×4 (06:11→23:25)
--- NOTE | 2020-02-04 06:23 | NUR ---
Call from family Family updated on pt status throughout the night. All questions and concerns addressed at this time.
--- NOTE | 2020-02-04 07:14 | NUR ---
REPORT GIVEN TO DAY SHIFT RN
--- NOTE | 2020-02-04 07:45 | NUR ---
OPENING SHIFT NOTE Received report from NOC RNElizabeth. Assumed care of patient. Received patient resting in bed, connected to bedside monitor with alarms in place. Patient is A&Ox4 and denies pain. No s/s of distress noted. Patient currently on Oxymizer at 9L with O2 sats in the mid 90s. Patient with stark draining to gravity yellow urine. Patient with two PIVs: left forearm #22 and left AC #18 both flush and are patent. Bed in lowest position, rails x2 up and call light/phone within reach. Updated on plan of care. Will continue to monitor q1hr/PRN.
[2020-02-04] MEDS: Glucerna Carbsteady SHAKE Vanilla 8oz PO SCH ×3 (08:00→18:22)
--- NOTE | 2020-02-04 09:00 | NUR ---
FAMILY T/C from patient's daughterYolanda. Password verified. Updated on patient status. All question answered at this time.
[2020-02-04] MEDS: DexAMETHasone SOD PHOS 10MG/1ML VIAL INJ IV SCH (10:00)
[2020-02-04] MEDS: INSULIN 70/30 1unit/0.01ml Susp (100units/ml) SC SCH ×2 (10:00→22:30)
[2020-02-04] MEDS: amLODIPine BESYLATE 5 MG TAB PO SCH (10:00)
[2020-02-04] MEDS: ASCORBIC ACID 1,000 MG TAB PO SCH (10:00)
[2020-02-04] MEDS: BUDESONIDE (INHALATION) 180 MCG IH IN SCH ×2 (10:00→22:59)
[2020-02-04] MEDS: ENOXAPARIN SOD 100 MG/1 ML SYRINGE SC SCH ×2 (10:00→22:36)
[2020-02-04] MEDS: cefTRIAXone 1GM/50ML D5W 50 ML IV SCH (10:00)
[2020-02-04] MEDS: ZINC SULFATE 220mg CAP or TAB PO SCH (10:00)
[2020-02-04] MEDS: POTASSIUM CHL 20 Meq TABLET PO SCH (10:00)
[2020-02-04] MEDS: CHOLECALCIFEROL (VITD3) 1,000UNIT=25mCg TAB PO SCH (10:00)
--- NOTE | 2020-02-04 12:42 | NUR ---
Nutrition Followup Notes Wt: 87.8 kg Pt is positive for COVID. Pt is with a cardiac diet, with adequate PO of 75% x 4 per RN doc. pt also receiving Glucerna 1 carton tid [employer] needs ABW 70 [id number] kcals (20-23 kcal/kgBW), Est Protein needs: 70-77 gms/day (1.0-1.1 gm/kgBW). Will continue to monitor and reassess prn. LABS: GLU 186 H ALB 3.1 L GI: Pt had 1 BM today per RN doc BS: 21 low risk. Refer to wound assessment report for full details. PES: Altered nutrition related lab values r.t current chronic medical condition aeb hypocalcemia, hypercapnia hypocalcemia and hyperglycemia Decreased nutrient needs r/t adiposity aeb pt`s high BMI of 38.0 kgm2 Comments 1) refer to [facility] dietitian on DC for wt management. 2) continue current plan of care
--- NOTE | 2020-02-04 13:00 | NUR ---
MD Dr Nails at bedside to see patient. Orders received for downgrade.
--- NOTE | 2020-02-04 14:45 | NUR ---
FAMILY T/C from patient's daughterYolanda. Password verified. Updated on patient status to include telemetry downgrade. Informed daughter that patient has no bed yet. Will notify family when bed is assigned. All questions answered.
--- NOTE | 2020-02-04 18:57 | NUR ---
END OF SHIFT NOTE Report to be given to NOC RNLisy. Care of patient to be endorsed. Patient doing well on Oxymizer 9L with O2 sats in the mids 90s. Patient is a tele downgrade, awaiting bed assignment.
--- NOTE | 2020-02-04 19:40 | NUR ---
OPENING NOTE REPORT RECEIVED FROM HANNA RN. THIS IS A POSITIVE COVID PATIENT ON NOVEL RESPIRATORY ISOLATION. PATIENT IS CONNECTED TO CONTINUOUS BEDSIDE MONITORS. PATIENT IS ON 9L OXYMIZER AND TOLERATING WELL. NEW ORDER FOR TELEMETRY IN PLACE, WILL DOWNGRADE WHEN BED BECOMES AVAILABLE. PHYSICAL ASSESSMENT DONE-SEE INTERVENTIONS. HOWARD DRAINING TO GRAVITY. POC DISCUSSED WITH PATIENT, ALL QUESTIONS ANSWERED. WILL MONITOR Q1H PRN THROUGHOUT SHIFT. CALL LIGHT WITHIN REACH.
--- NOTE | 2020-02-04 20:40 | NUR ---
REPORT/SBAR CALLED AND GAVE REPORT TO VICTOR M MORALEZ. ALL QUESTIONS ANSWERED. WILL TRANSFER PATIENT SHORTLY.
--- NOTE | 2020-02-04 20:45 | NUR ---
FAMILY PATIENTS DAUGHTER CHETNA CALLED. CORRECT PASSWORD WAS PROVIDED. UPDATE GIVEN, ALL QUESTIONS ANSWERED.
--- NOTE | 2020-02-04 20:53 | NUR ---
TRANSFER TO FLOOR PATIENT TAKEN TO ROOM 250B VIA WHEELCHAIR. ALL BELONGINGS TAKEN WITH PATIENT. PATIENT ON 9L OXYMIZER AT TIME OF TRANSFER. TELEBOX ON PATIENT. NO INCIDENT DURING TIME OF TRANSFER. RECEIVING VICTOR M MORALEZ TO ASSUME CARE OF PATIENT. Addendum: 02/04/20 at 2203 by Lisy Louise RN PATIENT TAKEN TO ROOM 250A
--- NOTE | 2020-02-04 20:53 | NUR ---
receive pt from debbie Assumed care of patient, awake and alert. No S/S of distress. Instructed on POC and to call for assist PRN, will continue to monitor for changes Q1hr and PRN.
[2020-02-05 05:00] VITALS: BP 133/85
[2020-02-05] MEDS: InsuLIN REG 1unit/0.01ml Soln (100units/ml) SC SCH ×4 (05:50→23:26)
[2020-02-05] MEDS: ACCU-CHEK COMFORT CURVE STRIP VI SCH ×4 (05:51→23:25)
[2020-02-05] MEDS: BUDESONIDE (INHALATION) 180 MCG IH IN SCH ×2 (07:16→22:00)
[2020-02-05] MEDS: ALBUTEROL SULF HFA 90MCG INH 200DOSE IN SCH ×3 (07:16→22:00)
--- NOTE | 2020-02-05 07:18 | NUR ---
end of shift notes endorse care to day shift RN , pt BERNABE , no sign and symptoms distress or sob Addendum: 02/05/20 at 718 by NAOMY ENGEL RN end of shift notes endorse care to day shift RN , pt BERNABE , no sign and symptoms of distress or sob
--- NOTE | 2020-02-05 07:30 | NUR ---
Opening Shift Note Assumed care of patient, awake and alert. No S/S of distress/SOB or pain. Bed is low, locked with 2x side rails up. Call light is within reach. Instructed on POC and to call for assist PRN, will continue to monitor for changes Q1hr and PRN.
[2020-02-05 09:42] VITALS: BP 122/83
[2020-02-05] MEDS: DexAMETHasone SOD PHOS 10MG/1ML VIAL INJ IV SCH (10:08)
[2020-02-05] MEDS: POTASSIUM CHL 20 Meq TABLET PO SCH (10:08)
[2020-02-05] MEDS: ZINC SULFATE 220mg CAP or TAB PO SCH (10:08)
[2020-02-05] MEDS: Glucerna Carbsteady SHAKE Vanilla 8oz PO SCH ×3 (10:08→17:54)
[2020-02-05] MEDS: amLODIPine BESYLATE 5 MG TAB PO SCH (10:09)
[2020-02-05] MEDS: CHOLECALCIFEROL (VITD3) 1,000UNIT=25mCg TAB PO SCH (10:09)
[2020-02-05] MEDS: ASCORBIC ACID 1,000 MG TAB PO SCH (10:09)
[2020-02-05] MEDS: INSULIN 70/30 1unit/0.01ml Susp (100units/ml) SC SCH ×2 (10:25→21:37)
[2020-02-05 12:41] VITALS: BP 113/77
[2020-02-05 12:42] VITALS: BP 113/77
--- NOTE | 2020-02-05 17:56 | NUR ---
Dr. Nails rounding Updating patient on POC.
[2020-02-05 18:23] VITALS: BP 148/90
[2020-02-05] MEDS: ACETAMINOPHEN 325 MG TAB PO PRN (21:36)
--- NOTE | 2020-02-05 22:00 | NUR ---
FAMILY PATIENTS DAUGHTER CHETNA CALLED. UPDATE GIVEN, ALL QUESTIONS ANSWERED.
[2020-02-05 22:58] VITALS: BP 129/71
[2020-02-06 05:18] VITALS: BP 132/83
[2020-02-06] MEDS: ACCU-CHEK COMFORT CURVE STRIP VI SCH ×4 (05:18→23:51)
[2020-02-06] MEDS: InsuLIN REG 1unit/0.01ml Soln (100units/ml) SC SCH ×4 (05:19→23:50)
[2020-02-06] MEDS: ALBUTEROL SULF HFA 90MCG INH 200DOSE IN SCH ×3 (06:42→21:16)
[2020-02-06] MEDS: BUDESONIDE (INHALATION) 180 MCG IH IN SCH ×2 (06:43→21:16)
--- NOTE | 2020-02-06 07:21 | NUR ---
end of shift notes endorse care to day shift RN , pt [email or web address] , no sign and symptoms of distress or sob
[2020-02-06 07:42] LABS: Hematocrit 43.7 % (36.0-46.0); Hemoglobin 14.7 g/dL (12.2-16.2); Mean Corpuscular Hemoglobin 30.8 pg (28.0-32.0); Mean Corpuscular Hgb Conc. 33.6 g/dL (32.0-36.0); Mean Corpuscular Volume 91.6 fL (80.0-100.0); Platelet Count (auto) 254 10^3/uL (140-450); Red Blood Cells 4.77 10^6/uL (4.0-5.20); Red Cell Distribution Width 14.8 % (11.8-14.3); White Blood Cell 16.3 10^3/uL (4.4-10.8)
[2020-02-06 07:46] LABS: Band Neutrophils % (manual) 0; Basophils % (manual) 0 (0.0-2.0); Blast Cells 0; Eosinophils % (manual) 0 (0-7); Metamyelocytes % 0; Myelocytes % 0; Promyelocytes % 0; Reactive Lymphocytes 0
[2020-02-06 07:57] LABS: Calcium 8.5 mg/dL (8.5-10.1); Magnesium 2.7 mg/dL (1.6-2.6); Potassium 4.4 mmol/L (3.5-5.1)
[2020-02-06 08:02] LABS: BUN/Creatinine Ratio 39.5; Bilirubin, Total 0.4 mg/dL (0.2-1.0); CRP High Sensitivity 0.04 mg/dL (< 0.3); Total Protein 6.6 g/dL (6.4-8.2)
[2020-02-06 08:06] LABS: Lymphocytes % (manual) 11 (10.0-50.0); Monocytes % (manual) 5 (0-12)
[2020-02-06 08:34] VITALS: BP 125/82
[2020-02-06] MEDS: DexAMETHasone SOD PHOS 10MG/1ML VIAL INJ IV SCH (09:17)
[2020-02-06] MEDS: Glucerna Carbsteady SHAKE Vanilla 8oz PO SCH ×3 (09:17→17:50)
[2020-02-06] MEDS: ZINC SULFATE 220mg CAP or TAB PO SCH (09:18)
[2020-02-06] MEDS: amLODIPine BESYLATE 5 MG TAB PO SCH (09:18)
[2020-02-06] MEDS: POTASSIUM CHL 20 Meq TABLET PO SCH (09:18)
[2020-02-06] MEDS: ASCORBIC ACID 1,000 MG TAB PO SCH (09:19)
[2020-02-06] MEDS: CHOLECALCIFEROL (VITD3) 1,000UNIT=25mCg TAB PO SCH (09:19)
[2020-02-06] MEDS: INSULIN 70/30 1unit/0.01ml Susp (100units/ml) SC SCH ×2 (11:58→22:30)
[2020-02-06 13:00] VITALS: BP 112/64
[2020-02-06 13:44] VITALS: BP 125/82
[2020-02-06 17:06] VITALS: BP 110/62
--- NOTE | 2020-02-06 17:36 | NUR ---
TITRATED O2 TO 2L N/C PATIENTS 02 SATURATION IS 94%
--- NOTE | 2020-02-06 18:02 | NUR ---
Stark catheter dc'd Order to discontinue stark catheter. Stark dc'd with clean technique following deflation of balloon. Patient tolerated well with no complaints of pain. Continue care.
--- NOTE | 2020-02-06 19:20 | NUR ---
OPENING NOTE ASSUMED CARE OF PT. ALERT AND ORIENTED. NO S/S OF SOB/DISTRESS NOTED. BED SET TO LOWEST POSITION/LOCKED. BEDSIDE RAILS UP X2. CALL LIGHT WITHIN REACH. INSTRUCTED PATIENT TO CALL FOR ASSISTANCE. UPDATED ON POC. WILL CONTINUE TO MONITOR Q1HR AND PRN.
[2020-02-06 22:00] VITALS: BP 121/72
[2020-02-06] MEDS: ACETAMINOPHEN 325 MG TAB PO PRN (22:35)
[2020-02-07 05:00] VITALS: BP 128/78
[2020-02-07] MEDS: ACCU-CHEK COMFORT CURVE STRIP VI SCH ×4 (05:51→23:06)
[2020-02-07] MEDS: InsuLIN REG 1unit/0.01ml Soln (100units/ml) SC SCH ×4 (05:51→23:07)
[2020-02-07] MEDS: ALBUTEROL SULF HFA 90MCG INH 200DOSE IN SCH ×3 (07:15→23:06)
[2020-02-07] MEDS: BUDESONIDE (INHALATION) 180 MCG IH IN SCH ×2 (07:15→23:06)
--- NOTE | 2020-02-07 07:15 | NUR ---
Respiratory note: MDI GIVEN BY RT, TOLERATED WELL. HR 82, RR 16, SPO2 96% 4L NC, BS DIMINISHED. NO SIGNS OR SYMPTOMS OF RESPIRATORY DISTRESS NOTED. WILL CONTINUE TO MONITOR ORDERED. Addendum: 02/07/20 at 1104 by DONNA YOUSIF RT PT INFORMED TO RINSE MOUTH AFTER PULMICORT DPI
--- NOTE | 2020-02-07 07:35 | NUR ---
end of shift notes endorse care to day shift RN , pt [email or web address] , no sign and symptoms of distress or sob
[2020-02-07] MEDS: Glucerna Carbsteady SHAKE Vanilla 8oz PO SCH ×2 (08:00→12:00)
--- NOTE | 2020-02-07 08:00 | NUR ---
ASSESSMENT NOTE PT IS ALERT ORIENTED X4, RESTING IN BED COMFORTABLY, NO DISTRESS NOTED ON 5 L NC SAT AT 94 %, PAIN 0/10, USE BED SIDE COMMODE NEEDED, CALL LIGHT WITHIN REACH
[2020-02-07] MEDS: INSULIN 70/30 1unit/0.01ml Susp (100units/ml) SC SCH ×2 (08:26→21:37)
[2020-02-07 08:58] VITALS: BP 131/68
--- NOTE | 2020-02-07 09:00 | NUR ---
DECREASE OXYGEN TO 3 NC, CONTINUE MONITORING
--- NOTE | 2020-02-07 09:30 | NUR ---
PT SAT ON 3 L NC AT 89 TO 90 %, INCREASE OXYGEN BACK UP TO 5 L NC
[2020-02-07] MEDS: CHOLECALCIFEROL (VITD3) 1,000UNIT=25mCg TAB PO SCH (09:31)
[2020-02-07] MEDS: POTASSIUM CHL 20 Meq TABLET PO SCH (09:31)
[2020-02-07] MEDS: ZINC SULFATE 220mg CAP or TAB PO SCH (09:31)
[2020-02-07] MEDS: ASCORBIC ACID 1,000 MG TAB PO SCH (09:31)
[2020-02-07] MEDS: amLODIPine BESYLATE 5 MG TAB PO SCH (09:32)
[2020-02-07] MEDS ORDERED: DexAMETHasone 4 MG TAB PO SCH (10:00)
--- NOTE | 2020-02-07 10:50 | NUR ---
FAMILY PATIENTS DAUGHTER CALLED TO GET UPDATE ABOUT HOW MANY LITER OF OXYGEN HER MOM IS ON, AND HAVE DR APARICIO TO CALL HER
[2020-02-07 13:00] VITALS: BP 122/72
--- NOTE | 2020-02-07 13:00 | NUR ---
DR ROJAS AT BED SIDE FOLLOWING UP ON PT, MADE AWARE OF PATIENT'S SATURATION
--- NOTE | 2020-02-07 13:35 | NUR ---
PAGE DR ROJAS CALLED BACK, MADE AWARE THAT THE FAMILY WOULD LIKE TO TALK TO HER
--- NOTE | 2020-02-07 14:30 | NUR ---
PHYSICAL THERAPY AT BED SIDE AMBULATING PT, AFTER AMBULATING 2 FEET, PT DESATURATE TO 68 % ON ROOM AIR, THEN BACK TO BED SAT CLIME UP TO 86, OXYGEN 5 L NC APPLIED SAT AT 94%
--- NOTE | 2020-02-07 14:48 | NUR ---
CALLED PATIENT'S DAUGHTER CHETNA, UPDATE ARE GIVEN TO HER
[2020-02-07] MEDS ORDERED: FUROSEMIDE 40 MG/4 ML VIAL IV ONE (16:30)
[2020-02-07 17:00] VITALS: BP 117/57
--- NOTE | 2020-02-07 18:32 | NUR ---
PT CONTINUE STABLE, CONTINUE MONITORING
[2020-02-07 22:00] VITALS: BP 112/55
[2020-02-08 05:00] VITALS: BP 110/58
[2020-02-08] MEDS: ACCU-CHEK COMFORT CURVE STRIP VI SCH ×6 (05:39→23:53)
[2020-02-08] MEDS: InsuLIN REG 1unit/0.01ml Soln (100units/ml) SC SCH ×4 (05:40→23:54)
--- NOTE | 2020-02-08 07:03 | NUR ---
end of shift notes will endorse care to day shift RN , pt [email or web address] , no sign and symptoms of distress or sob
[2020-02-08 08:00] VITALS: BP 125/77
[2020-02-08] MEDS: Glucerna Carbsteady SHAKE Vanilla 8oz PO SCH ×4 (08:00→18:03)
--- NOTE | 2020-02-08 08:00 | NUR ---
ASSESSMENT NOTE PT IS ALERT ORIENTED X4, RESTING IN BED COMFORTABLY, NO DISTRESS NOTED ON 4 L NC SAT AT 94 %, PAIN 0/10, USE BED SIDE COMMODE NEEDED, CALL LIGHT WITHIN REACH
[2020-02-08] MEDS ORDERED: cefTRIAXone 1GM/50ML D5W 50 ML IV ONE (08:45)
[2020-02-08] MEDS ORDERED: DOXYCYCLINE 100 MG TAB/CAP PO ONE (08:45)
[2020-02-08] MEDS: POTASSIUM CHL 20 Meq TABLET PO SCH (09:00)
[2020-02-08] MEDS: ZINC SULFATE 220mg CAP or TAB PO SCH (09:00)
[2020-02-08] MEDS: ASCORBIC ACID 1,000 MG TAB PO SCH (09:00)
[2020-02-08] MEDS: CHOLECALCIFEROL (VITD3) 1,000UNIT=25mCg TAB PO SCH (09:01)
[2020-02-08] MEDS: cefTRIAXone 1GM/50ML D5W 50 ML IV SCH ×2 (09:28→21:33)
[2020-02-08] MEDS: FUROSEMIDE 40 MG/4 ML VIAL IV SCH (09:29)
[2020-02-08] MEDS: DOXYCYCLINE 100 MG TAB/CAP PO SCH ×2 (09:29→21:33)
[2020-02-08] MEDS: ENOXAPARIN SOD 40 MG/0.4 ML SYRINGE SC SCH ×2 (09:29→21:34)
--- NOTE | 2020-02-08 09:30 | NUR ---
BM OUT OF BED TO BSC, PT HAS LARGE SOFT BM, KEPT CLEAN AND DRY, WAS ABLE TO GO BACK TO BED, NO SHORTNESS OF BREATH NOTED
[2020-02-08] MEDS: INSULIN 70/30 1unit/0.01ml Susp (100units/ml) SC SCH ×2 (10:03→21:30)
[2020-02-08] MEDS: amLODIPine BESYLATE 5 MG TAB PO SCH (10:10)
[2020-02-08 10:22] LABS: BUN/Creatinine Ratio 27.6; Calcium 8.5 mg/dL (8.5-10.1); Potassium 4.1 mmol/L (3.5-5.1)
[2020-02-08] MEDS: ALBUTEROL SULF HFA 90MCG INH 200DOSE IN SCH ×3 (10:27→22:55)
[2020-02-08] MEDS: BUDESONIDE (INHALATION) 180 MCG IH IN SCH ×2 (10:27→22:55)
--- NOTE | 2020-02-08 10:49 | NUR ---
PT CONTINUE USING INCENTIVE SPIROMETR EVERY HOUR, COMPLYING IN HER TREATMENT
[2020-02-08 10:50] LABS: Basophils # (auto) 0.1 10 ^3/uL (0-0.2); Basophils % (auto) 0.4 % (0.0-2.0); Eosinophils # (auto) 0.1 10 ^3/uL (0-0.8); Eosinophils % (auto) 0.5 % (0.0-7.0); Hematocrit 47.5 % (36.0-46.0); Hemoglobin 15.5 g/dL (12.2-16.2); Lymphocytes # (auto) 2.3 10 ^3/uL (0.4-5.4); Lymphocytes % (auto) 11.6 % (10.0-50.0); Mean Corpuscular Hemoglobin 30.3 pg (28.0-32.0); Mean Corpuscular Hgb Conc. 32.7 g/dL (32.0-36.0); Mean Corpuscular Volume 92.5 fL (80.0-100.0); Monocytes # (auto) 1.2 10 ^3/uL (0-1.3); Monocytes % (auto) 6.3 % (0.0-12.0); Neutrophils # (auto) 15.8 10 ^3/uL (1.6-8.6); Neutrophils % (auto) 81.2 % (37.0-80.0); Platelet Count (auto) 286 10^3/uL (140-450); Red Blood Cells 5.13 10^6/uL (4.0-5.20); Red Cell Distribution Width 15.2 % (11.8-14.3); White Blood Cell 19.4 10^3/uL (4.4-10.8)
[2020-02-08 12:00] VITALS: BP 114/75
[2020-02-08] MEDS ORDERED: DEXTROSE (50%) 50ML SYRG IV PRN (12:45)
--- NOTE | 2020-02-08 14:25 | NUR ---
Nutrition Followup Notes Wt: 89.8 kg Pt is positive for COVID. Pt is with a cardiac diet, with improved and adequate PO of 94% x 4 per RN doc. pt also receiving Glucerna 1 carton tid. Will continue to monitor PO status, skin status, pertinent labs and weight trends. Will f/u in 3-5 days. Est Energy needs ABW 70 [id number] kcals (20-23 kcal/kgBW), Est Protein needs: 70-77 gms/day (1.0-1.1 gm/kgBW). Will continue to monitor and reassess prn. LABS: GLU 126 H ALB 3.0 L GI: Pt had 1 BM on 02/03 per RN doc BS: 20 low risk. Refer to wound assessment report for full details. PES: Altered nutrition related lab values r.t current chronic medical condition aeb hypocalcemia, hypercapnia hypocalcemia and hyperglycemia Decreased nutrient needs r/t adiposity aeb pt`s high BMI of 38.0 kgm2 Comments 1) refer to [facility] dietitian on DC for wt management. 2) continue current plan of care
--- NOTE | 2020-02-08 15:30 | NUR ---
PHYSICAL THERAPY PT AGREE FOR EXERCISES AND REFUSED TO AMBULATE
[2020-02-08 16:57] VITALS: BP 130/71
--- NOTE | 2020-02-08 18:24 | NUR ---
PT IS SITTING UP EATING DINNER, NO DISTRESS NOTED, CONTINUE MONITORING
[2020-02-08 22:00] VITALS: BP 118/74
--- NOTE | 2020-02-08 22:58 | NUR ---
RT NOTE PT WAS SEEN BY RT FOR MDI TX. PT TOLERATES ALBUTEROL WELL VIA SPACER. PT RINSED MOUTH POST PULMICORT INHALER. PT WAS ON 5L NASAL CANNULA, SATS 97%, DECREASED TO 3L NASAL CANNULA, SATS 96% CONT ORDERED Addendum: 02/08/20 at 2300 by Divya Perez RT Amended: Links added.
[2020-02-09] MEDS: ACCU-CHEK COMFORT CURVE STRIP VI SCH ×6 (05:25→18:28)
[2020-02-09] MEDS: InsuLIN REG 1unit/0.01ml Soln (100units/ml) SC SCH ×3 (05:26→18:31)
[2020-02-09 05:53] VITALS: BP 118/72
[2020-02-09 07:00] LABS: Hematocrit 44.3 % (36.0-46.0); Hemoglobin 14.8 g/dL (12.2-16.2); Mean Corpuscular Hemoglobin 30.6 pg (28.0-32.0); Mean Corpuscular Hgb Conc. 33.4 g/dL (32.0-36.0); Mean Corpuscular Volume 91.7 fL (80.0-100.0); Platelet Count (auto) 253 10^3/uL (140-450); Red Blood Cells 4.83 10^6/uL (4.0-5.20); Red Cell Distribution Width 14.8 % (11.8-14.3); White Blood Cell 18.1 10^3/uL (4.4-10.8)
[2020-02-09 07:05] LABS: Band Neutrophils % (manual) 0; Basophils % (manual) 0 (0.0-2.0); Blast Cells 0; Myelocytes % 0; Promyelocytes % 0; Reactive Lymphocytes 0
[2020-02-09 07:17] LABS: BUN/Creatinine Ratio 40.4; Calcium 8.5 mg/dL (8.5-10.1); Potassium 4.3 mmol/L (3.5-5.1)
--- NOTE | 2020-02-09 07:21 | NUR ---
end of shift notes will endorse care to day shift RN , pt [email or web address] , no sign and symptoms of distress or sob
[2020-02-09] MEDS: ALBUTEROL SULF HFA 90MCG INH 200DOSE IN SCH ×3 (07:23→22:49)
[2020-02-09] MEDS: BUDESONIDE (INHALATION) 180 MCG IH IN SCH ×2 (07:23→22:49)
[2020-02-09 07:45] LABS: Eosinophils % (manual) 1 (0-7); Lymphocytes % (manual) 12 (10.0-50.0); Metamyelocytes % 1; Monocytes % (manual) 8 (0-12)
[2020-02-09 08:00] VITALS: BP 111/70
[2020-02-09] MEDS: Glucerna Carbsteady SHAKE Vanilla 8oz PO SCH ×3 (08:00→18:00)
[2020-02-09] MEDS: FUROSEMIDE 40 MG/4 ML VIAL IV SCH (09:22)
[2020-02-09] MEDS: cefTRIAXone 1GM/50ML D5W 50 ML IV SCH (09:22)
[2020-02-09] MEDS: ZINC SULFATE 220mg CAP or TAB PO SCH (09:23)
[2020-02-09] MEDS: POTASSIUM CHL 20 Meq TABLET PO SCH (09:23)
[2020-02-09] MEDS: amLODIPine BESYLATE 5 MG TAB PO SCH (09:24)
[2020-02-09] MEDS: DOXYCYCLINE 100 MG TAB/CAP PO SCH ×2 (09:24→22:49)
[2020-02-09] MEDS: INSULIN 70/30 1unit/0.01ml Susp (100units/ml) SC SCH ×2 (09:25→22:00)
[2020-02-09] MEDS: ENOXAPARIN SOD 40 MG/0.4 ML SYRINGE SC SCH ×2 (09:25→22:50)
[2020-02-09] MEDS: CHOLECALCIFEROL (VITD3) 1,000UNIT=25mCg TAB PO SCH (09:25)
[2020-02-09] MEDS: ASCORBIC ACID 1,000 MG TAB PO SCH (09:25)
[2020-02-09] MEDS ORDERED: predniSONE 20 MG TAB PO ONE (11:00)
[2020-02-09 12:00] VITALS: BP 124/78
[2020-02-09 17:00] VITALS: BP 136/79
[2020-02-09] MEDS: metFORMIN HYDROCHLORIDE 500 MG TAB PO SCH (18:32)
[2020-02-09 21:37] VITALS: BP 137/73
[2020-02-10] VITALS (8 sets, daily range): BP systolic 66–143; BP diastolic 23–79
[2020-02-10] MEDS: ACCU-CHEK COMFORT CURVE STRIP VI SCH ×5 (00:29→21:48)
[2020-02-10] MEDS: InsuLIN REG 1unit/0.01ml Soln (100units/ml) SC SCH ×4 (06:00→17:27)
[2020-02-10] MEDS: ALBUTEROL SULF HFA 90MCG INH 200DOSE IN SCH ×3 (07:14→22:29)
[2020-02-10] MEDS: BUDESONIDE (INHALATION) 180 MCG IH IN SCH ×2 (07:15→22:29)
[2020-02-10] MEDS: Glucerna Carbsteady SHAKE Vanilla 8oz PO SCH ×3 (07:49→17:26)
[2020-02-10] MEDS: metFORMIN HYDROCHLORIDE 500 MG TAB PO SCH ×2 (08:34→17:26)
--- NOTE | 2020-02-10 08:40 | NUR ---
DR COREY FABIAN FOR CRITICAL ROOM AIR PO2 VALUE ON ABG. PT PLACED BACK ON 2 L NC. PT SPO2 93% ON 2L NC. WILL CONTINUE TO MONITOR PT. RN AWARE. CHARTING COMPLETE FROM OUTSIDE OF PT ROOM PER COVID-19 PRECAUTIONS/PROTOCOL.
[2020-02-10] MEDS: INSULIN 70/30 1unit/0.01ml Susp (100units/ml) SC SCH ×2 (10:00→21:44)
[2020-02-10] MEDS: ZINC SULFATE 220mg CAP or TAB PO SCH (10:14)
[2020-02-10] MEDS: predniSONE 20 MG TAB PO SCH (10:14)
[2020-02-10] MEDS: FUROSEMIDE 40 MG TAB PO SCH (10:15)
[2020-02-10] MEDS: amLODIPine BESYLATE 5 MG TAB PO SCH (10:15)
[2020-02-10] MEDS: POTASSIUM CHL 20 Meq TABLET PO SCH (10:15)
[2020-02-10] MEDS: ASCORBIC ACID 1,000 MG TAB PO SCH (10:15)
[2020-02-10] MEDS: DOXYCYCLINE 100 MG TAB/CAP PO SCH ×2 (10:15→21:48)
[2020-02-10] MEDS: ENOXAPARIN SOD 40 MG/0.4 ML SYRINGE SC SCH ×2 (10:16→21:48)
[2020-02-10] MEDS: CHOLECALCIFEROL (VITD3) 1,000UNIT=25mCg TAB PO SCH (10:16)
[2020-02-10 11:30] LABS: Basophils # (auto) 0.1 10 ^3/uL (0-0.2); Basophils % (auto) 0.8 % (0.0-2.0); Eosinophils # (auto) 0.3 10 ^3/uL (0-0.8); Eosinophils % (auto) 1.8 % (0.0-7.0); Hematocrit 43.8 % (36.0-46.0); Hemoglobin 14.2 g/dL (12.2-16.2); Lymphocytes # (auto) 2.1 10 ^3/uL (0.4-5.4); Lymphocytes % (auto) 13.7 % (10.0-50.0); Mean Corpuscular Hemoglobin 29.9 pg (28.0-32.0); Mean Corpuscular Hgb Conc. 32.4 g/dL (32.0-36.0); Mean Corpuscular Volume 92.4 fL (80.0-100.0); Monocytes % (auto) 6.6 % (0.0-12.0); Neutrophils % (auto) 77.1 % (37.0-80.0); Nucleated Red Blood Cells % 0.1 %; Platelet Count (auto) 229 10^3/uL (140-450); Red Blood Cells 4.74 10^6/uL (4.0-5.20); White Blood Cell 15.6 10^3/uL (4.4-10.8)
[2020-02-10 11:55] LABS: BUN/Creatinine Ratio 27.9; Calcium 8.4 mg/dL (8.5-10.1); Potassium 4.3 mmol/L (3.5-5.1)
[2020-02-10] MEDS ORDERED: DEXTROSE (50%) 50ML SYRG IV PRN (14:30)
--- NOTE | 2020-02-10 15:29 | NUR ---
02/10/2020 [id number] Faxed to [facility] face sheet, progress notes, order for D/C planning, requesting Home Health Medication Management, Bedside Commode, Home o2 at 3L/min via nasal cannula to be delivered to the hospital and the patient's home, will scan into [employer].
--- NOTE | 2020-02-10 19:20 | NUR ---
Opening Shift Note Assumed care of patient, awake and alert. No S/S of distress/SOB or pain. Instructed on POC and to call for assist PRN, will continue to monitor for changes Q1hr and PRN.
[2020-02-10] MEDS ORDERED: InsuLIN REG 1unit/0.01ml Soln (100units/ml) SC SCH (22:00)
[2020-02-11 05:32] VITALS: BP 114/70
[2020-02-11] MEDS: ACCU-CHEK COMFORT CURVE STRIP VI SCH ×3 (06:01→17:07)
[2020-02-11] MEDS: InsuLIN REG 1unit/0.01ml Soln (100units/ml) SC SCH ×3 (06:02→17:08)
--- NOTE | 2020-02-11 07:24 | NUR ---
end of shift notes will endorse care to day shift RN , pt [email or web address] , no sign and symptoms of distress or sob
[2020-02-11] MEDS: BUDESONIDE (INHALATION) 180 MCG IH IN SCH (07:54)
[2020-02-11] MEDS: ALBUTEROL SULF HFA 90MCG INH 200DOSE IN SCH ×2 (07:54→14:33)
[2020-02-11 08:06] LABS: Basophils # (auto) 0.1 10 ^3/uL (0-0.2); Basophils % (auto) 0.8 % (0.0-2.0); Eosinophils # (auto) 0.3 10 ^3/uL (0-0.8); Eosinophils % (auto) 1.8 % (0.0-7.0); Hematocrit 44.2 % (36.0-46.0); Hemoglobin 14.4 g/dL (12.2-16.2); Lymphocytes # (auto) 2.9 10 ^3/uL (0.4-5.4); Lymphocytes % (auto) 18.5 % (10.0-50.0); Mean Corpuscular Hgb Conc. 32.6 g/dL (32.0-36.0); Monocytes # (auto) 1.1 10 ^3/uL (0-1.3); Monocytes % (auto) 7.1 % (0.0-12.0); Neutrophils # (auto) 11.2 10 ^3/uL (1.6-8.6); Neutrophils % (auto) 71.8 % (37.0-80.0); Platelet Count (auto) 212 10^3/uL (140-450); White Blood Cell 15.6 10^3/uL (4.4-10.8)
[2020-02-11 09:00] VITALS: BP 121/75
[2020-02-11] MEDS: metFORMIN HYDROCHLORIDE 500 MG TAB PO SCH ×2 (09:35→17:07)
[2020-02-11] MEDS: Glucerna Carbsteady SHAKE Vanilla 8oz PO SCH ×3 (09:35→17:07)
[2020-02-11] MEDS: predniSONE 20 MG TAB PO SCH (09:36)
[2020-02-11] MEDS: ZINC SULFATE 220mg CAP or TAB PO SCH (09:36)
[2020-02-11] MEDS: FUROSEMIDE 40 MG TAB PO SCH (10:02)
[2020-02-11] MEDS: POTASSIUM CHL 20 Meq TABLET PO SCH (10:02)
[2020-02-11] MEDS: DOXYCYCLINE 100 MG TAB/CAP PO SCH (10:03)
[2020-02-11] MEDS: ASCORBIC ACID 1,000 MG TAB PO SCH (10:03)
[2020-02-11] MEDS: amLODIPine BESYLATE 5 MG TAB PO SCH (10:03)
[2020-02-11] MEDS: ENOXAPARIN SOD 40 MG/0.4 ML SYRINGE SC SCH (10:04)
[2020-02-11] MEDS: CHOLECALCIFEROL (VITD3) 1,000UNIT=25mCg TAB PO SCH (10:04)
--- NOTE | 2020-02-11 11:20 | NUR ---
02/11/2020 Jodie Called [facility] and spoke with Ella avilez, who stated she will send a message to Lorena and Elizabeth who work with discharge planning, regarding the discharge needs of the patient for home.
[2020-02-11 13:00] VITALS: BP 118/70
[2020-02-11] MEDS: INSULIN 70/30 1unit/0.01ml Susp (100units/ml) SC SCH (13:08)
[2020-02-11 15:31] VITALS: BP 121/75
--- NOTE | 2020-02-11 16:37 | NUR ---
02/11/2020 1625 Called [facility] and spoke with Will revenue integrity analyst, who stated he spoke with Elizabeth Thakkar who works with D/C planning and they are working on the D/C orders and it will be done by alan for tomorrow.
--- NOTE | 2020-02-11 16:39 | NUR ---
Spoke with JESSIE from [facility] O2 tank will be sent to bedside. Concentrator and bedside commode will be sent to her home and home health nurse from [facility] to be out in 24 hours.
[2020-02-11 17:00] VITALS: BP 127/74
--- NOTE | 2020-02-11 19:45 | NUR ---
Discharge instructions given as ordered. Encourage to follow up with PMD as instructed. All questions and concerns addressed. Patient verbalized understanding. . IV removed with catheter intact, pressure dressing applied. Telemetry unit returned to ICU. Patient taken to vehicle via wheelchair with all personal belongings, accompanied by staff and family member. No distress noted at time of departure. pt went home with home oxygen [employer]
== END 2020-02-11 19:45 | disposition home health service (06) | DRG 871 ==
LOC: ER 18:00 → EDBD 18:00 → TELE 18:01 → DOU IN ICU 01-27 23:34 → EAST 02-04 20:55 → TELE-EAST 02-04 21:00
PROVIDERS: ADMIT Hospitalist; ATTEND Internal Medicine
PROC: XW033E5 Introduction of Remdesivir Anti-infective into Peripheral Vein, Percutaneous Approach, New Technology Group 5 (ICD-10-PCS; 2020-01-23)
PROC: 5A09357 Assistance with Respiratory Ventilation, Less than 24 Consecutive Hours, Continuous Positive Airway Pressure (ICD-10-PCS; 2020-01-24)
PROC: 5A09357 Assistance with Respiratory Ventilation, Less than 24 Consecutive Hours, Continuous Positive Airway Pressure (ICD-10-PCS; 2020-01-25)
PROC: 5A09357 Assistance with Respiratory Ventilation, Less than 24 Consecutive Hours, Continuous Positive Airway Pressure (ICD-10-PCS; 2020-01-26)
PROC: 5A09357 Assistance with Respiratory Ventilation, Less than 24 Consecutive Hours, Continuous Positive Airway Pressure (ICD-10-PCS; 2020-01-27)
PROC: 30233L1 Transfusion of Nonautologous Fresh Plasma into Peripheral Vein, Percutaneous Approach (ICD-10-PCS; 2020-01-27)
PROC: 5A09357 Assistance with Respiratory Ventilation, Less than 24 Consecutive Hours, Continuous Positive Airway Pressure (ICD-10-PCS; 2020-01-28)
PROC: 5A09357 Assistance with Respiratory Ventilation, Less than 24 Consecutive Hours, Continuous Positive Airway Pressure (ICD-10-PCS; 2020-01-29)
PROC: 5A09357 Assistance with Respiratory Ventilation, Less than 24 Consecutive Hours, Continuous Positive Airway Pressure (ICD-10-PCS; 2020-01-30)
PROC: 5A09357 Assistance with Respiratory Ventilation, Less than 24 Consecutive Hours, Continuous Positive Airway Pressure (ICD-10-PCS; 2020-01-31)
PROC: 5A09357 Assistance with Respiratory Ventilation, Less than 24 Consecutive Hours, Continuous Positive Airway Pressure (ICD-10-PCS; principal; 2020-02-01)
DX: A41.89 Other specified sepsis (principal); J12.89 Other viral pneumonia; J96.01 Acute respiratory failure with hypoxia; U07.1 COVID-19; N39.0 Urinary tract infection, site not specified; E11.65 Type 2 diabetes mellitus with hyperglycemia; R65.20 Severe sepsis without septic shock; E66.9 Obesity, unspecified; Z68.35 Body mass index [BMI] 35.0-35.9, adult; I11.0 Hypertensive heart disease with heart failure; I50.9 Heart failure, unspecified; Z79.51 Long term (current) use of inhaled steroids; Z79.899 Other long term (current) drug therapy
CPT/HCPCS: 36415; 36600; 51702; 71045; 80048; 80053; 81001; 82728; 82805; 82962; 83036; 83605; 83615; 83735; 83880; 84484; 85007; 85025; 85027; 85379; 85610; 85730; 86141; 86850; 86900; 86901; 87040; 87070; 87081; 87086; 87804; 87880; 93005; 94640; 94660; 96365; 96375; 97110; 97163; A4565; G0378; J0696; J1100; J1815; J3490